=== PATIENT | female | born 2000 | race Caucasian/White ===

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

== ENCOUNTER 2021-10-07 12:07 | Emergency (ER) | payer OTHER ==
[~2021-10-07] VITALS: Ht 170.2 cm; Wt 106.4 kg
[~2021-10-07 12:07] MED LIST changes: +ZOLO50TA PO
[2021-10-07 12:09] VITALS: BP 131/67
--- OUTSIDE RECORDS SUMMARY | 2021-10-07 12:14 | CCD ---
Author Author Monica Lockwood Organization Unknown Address [address] [address] Phone Care Team Providers Care Tank Refinisher Name Role Phone Lockwood, Lisa PCP Allergies, Adverse Reactions, Alerts No Data in Section Problem List Concept Problem Description Status Start Date Created Date Resolv ed Date Snomed Code F31.9 Unspecified Bipolar and Related Disorder Active 08/14/2021 F12.10 Cannabis Use Disorder, Mild Active 08/14/2021 Medications No Data in Section Social History Social History Element Description Concept Effective Date Smoking Status Unknown if ever smoked [id number] Immunizations No Data in Section Vital Signs No Data in Section Procedures Date Concept Id Description Targeted Site Concept Targeted Site Concept Type 08/14/2021 40508 Extended Individual Psychotherapy - 45 min CPT Patient has no history of implantable de vices Encounters Encounter Start Date End Date Encounter Type Description Diagnosis Di agnosis Desc Location Author First Name Author Last Name Npid Taxonomy Cod e Taxonomy Desc Phone Number Location Addr1 Location Addr2 Location [facility] Location [facility] Location [facility] [id number] 08/14/2021 08/14/2021 18742 Extended Individual Psych otherapy - 45 min F31.9 Bipolar disorder, unspecified [facility] [place] [phone] [id number] Mental Health [phone] [address] [place], [place] [address] [facility] [id number] Plan of Treatment No Data in Section Lab Results No Data in Section Instructions No Data in Section Insurance Providers Insurance Id Policy Effective Date Policy Thru Date Company N jon [id number] 2021 [employer] Managed MTanvi balderas
--- OUTSIDE RECORDS SUMMARY | 2021-10-07 12:14 | CCD ---
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 Name Role Phone James Sullivan MEDICAL CONCIERGE Unavailable James Sullivan MEDICAL CONCIERGE Unavailable James Sullivan MEDICAL CONCIERGE Unavailable BILAL, ARTUROMAD Unavailable Unavailable BILAL, AHMAD MD Unavailable Unavailable BILAL, AHMAD MD Unavailable Unavailable BILAL, AHMAD MD Unavailable Unavailable BILAL, AHMAD MD Unavailable Unavailable BILAL, AHMAD MD Unavailable Unavailable BILAL, AHMAD MD Unavailable Unavailable BILAL, AHMAD MD Unavailable Unavailable BILAL, AHMAD MD Unavailable Unavailable BILAL, AHMAD MD Unavailable Unavailable Salinas, R Murphy MEDICAL CONCIERGE Unavailable Unavailable Salinas, R Murphy MEDICAL CONCIERGE Unavailable Unavailable Salinas, R Murphy MEDICAL CONCIERGE Unavailable Unavailable DARIN, GAYLA MEDICAL CONCIERGE Unavailable Unavailable DARIN, GAYLA MEDICAL CONCIERGE Unavailable Unavailable DARIN, GAYLA MEDICAL CONCIERGE Unavailable Unavailable DARIN, GAYLA MEDICAL CONCIERGE Unavailable Unavailable DARIN, GAYLA MEDICAL CONCIERGE Unavailable Unavailable DARIN, GAYLA MEDICAL CONCIERGE Unavailable Unavailable DARIN, GAYLA MEDICAL CONCIERGE Unavailable Unavailable Violet Lu Unavailable LisaMeme watts Unavailable Angeline Michelle Unavailable Unavailable Re-disclosure Warning The records that you are about to access may contain information from federally-assisted alcohol or drug abuse programs. If such information is present, then the following federally mandated warning applies: This information has been disclosed to you from records protected by federal confidentiality rules (42 CFR part 2). The federal rules prohibit you from making any further disclosure of this information unless further disclosure is expressly permitted by the written consent of the person to whom it pertains or as otherwise permitted by 42 CFR part 2. A general authorization for the release of medical or other information is NOT sufficient for this purpose. The Federal rules restrict any use of the information to criminally investigate or prosecute any alcohol or drug abuse patient.The records that you are about to access may contain highly sensitive health information, the redisclosure of which is protected by Article 27-F of the [place] State Public Health law. If you continue you may have access to information: Regarding HIV / AIDS; Provided by facilities licensed or operated by the [facility] Office of Mental Health; or Provided by the [facility] Office for People With Developmental Disabilities. If such information is present, then the following [facility] mandated warning applies: This information has been disclosed to you from confidential records which are protected by state law. State law prohibits you from making any further disclosure of this information without the specific written consent of the person to whom it pertains, or as otherwise permitted by law. Any unauthorized further disclosure in violation of state law may result in a fine or snf sentence or both. A general authorization for the release of medical or other information is NOT sufficient authorization for further disc losure. Allergies and Adverse Reactions Type Description Substance Reaction Status Data Source(s ) Drug allergy Penicillins Penicillin hives and face swells [facility] Health Encounters Encounter Providers Location Date Indications Data Source(s ) Extended Individual Psychotherapy - 45 min Attender: Angeline Miguel Angel [facility] 08/14/2021 01:00:00 AM EDT - 08/14/2021 01:00:00 AM EDT [facility] ([facility]) Attender: Angeline Miguel Angel 08/14/2021 12:00:00 AM EDT [facility] ([facility]) Health Monitoring - 30 Min Attender: Meme Priest [facility] 06/25/2021 02:00:00 AM EDT - 06/25/2021 02:00:00 AM EDT [facility] ([facility]) Psychiatric Diagnostic Evaluation (Non-Medical) Attender: Shantel valencia [facility] 06/25/2021 01:00:00 AM EDT - 06/25/2021 01:00:00 AM EDT [facility] ([facility]) Attender: Meme Priest 06/25/2021 12:00:00 AM EDT [facility] ([facility]) Attender: Angeline Miguel Angel 06/25/2021 12:00:00 AM EDT [facility] ([facility]) Brief Individual Psychotherapy - 30 min Attender: Violet hernandez [facility] 06/08/2021 11:00:00 AM EDT - 06/08/2021 11:00:00 AM EDT [facility] ([facility]) Attender: Violet Lu 06/08/2021 12:00:00 AM EDT [facility] ([facility]) ([facility]) [facility] Nurse Visit [address] [place] [address] 04/16/2021 12:00:00 AM EDT eC1 ([facility]) Extended Individual Psychotherapy - 45 min Attender: Angeline Michelle [facility] 04/02/2021 03:00:00 AM EDT - 04/02/2021 03:00:00 AM EDT [facility] ([facility]) Attender: Angeline Michelle 04/02/2021 12:00:00 AM EDT [facility] ([facility]) Attender: Angeline Michelle 03/12/2021 12:00:00 AM EDT [facility] ([facility]) Extended Individual Psychotherapy - 45 min Attender: Angeline Miguel Angel [facility] 03/11/2021 02:00:00 AM EDT - 03/11/2021 02:00:00 AM EDT [facility] ([facility]) Extended Individual Psychotherapy - 45 min [facility] 02/24/[facility]21 02:00:00 AM EDT - 02/24/2021 02:00:00 AM EDT [facility] ([facility]) Attender: Angeline Michelle 02/24/2021 12:00:00 AM EDT [facility] ([facility]) Telemed Diagnostic Eval Attender: Murphy Guerrero [facility] 02/10/2021 02:00:00 AM EDT - 02/10/2021 02:00:00 AM EDT [facility] ([facility]) Attender: Murphy Salinas NP 02/10/2021 12:00:00 AM EDT [facility] ([facility]) Outpatient [address] [facility] [address] 01/29/2021 12:00:00 AM EDT eCW1 ([facility]) Inpatient Attender: OSMANI TOUSSAINT MDAdmitter: OSMANI TOUSSAINT MD 01/09/2021 03:15:00 AM EST - 01/12/2021 06:07:00 PM EDT Suicidal Ideation w/plan to [place] [facility] Suicidal Ideation w/plan to jump in rive [place] Patient discharged. Outpatient Attender: GAYLA WEBSTER NPAdm itter: OSMANI TOUSSAINT MDConsultant: OSMANI TOUSSAINT MD 01/09/2021 03:15:00 AM EST Suicidal Ideation w/p sadie to [place] [facility] Suicidal Ideation w/plan to jump in rive r Outpatient Attender: James Sullivan NPAd mitter: OSMANI TOUSSAINT MDConsultant: OSMANI TOUSSAINT MD 01/09/2021 03:15:00 AM EST Suicidal Ideation w/p sadie to [place] [facility] Suicidal Ideation w/plan to jump in rive r Outpatient Attender: GAYLA WEBSTER NPAdm itter: OSMANI TOUSSAINT MDConsultant: OSMANI TOUSSAINT MD 01/09/2021 03:15:00 AM EST Suicidal Ideation w/p sadie to [place] [facility] Suicidal Ideation w/plan to jump in rive r Outpatient Attender: OSMANI TOUSSAINT MDAdmi tter: OSMANI TOUSSAINT MDConsultant: OSMANI TOUSSAINT MD 01/09/2021 03:15:00 AM EST Suicidal Ideation w/p sadie to [place] [facility] Suicidal Ideation w/plan to jump in rive r Outpatient Attender: OSMANI TOUSSAINT MDAdmi tter: OSMANI TOUSSAINT MDConsultant: OSMANI TOUSSAINT MD 01/09/2021 03:15:00 AM EST Suicidal Ideation w/p sadie to [place] [facility] Suicidal Ideation w/plan to jump in rive r Outpatient 01/09/2021 01:35:00 AM EST [facility] SI ( ESTOB) [facility]Center Est OB [address] [place] [address] 12/26/2020 12:00:00 AM EST eCW1 ([facility]) (WC ESTOB) [facility] [address] [place] [address] 10/21/2020 12:00:00 AM EST eCW1 ([facility]) (WC ESTOB) [facility] [address] [place] [address] 10/07/2020 12:00:00 AM EST eCW1 ([facility]) (WC ESTOB) [facility] [address] [place] [address] 09/09/2020 12:00:00 AM EST eCW1 ([facility]) Unknown [address] [facility] [address] 09/09/2020 12:00:00 AM EST eCW1 ([facility]) Outpatient [address] [place] [address] 08/26/2020 12:00:00 AM EDT eCW1 ([facility]) ( ESTOB) [facility] Est OB [address] [place] [address] 08/19/2020 12:00:00 AM EDT eCW1 ([facility]) Functional Status Immunizations Vaccine Date Status Description Data Source(s) 04/16/2021 02:43:00 PM EDT completed e CW1 ([facility]) 01/29/2021 10:58:00 AM EDT completed e CW1 ([facility]) 01/29/2021 10:58:00 AM EDT completed e CW1 ([facility]) New in 2011. IIV4 08/19/2020 04:38:00 PM EDT completed eCW1 ([facility]) New in 2011. IIV4 08/19/2020 04:38:00 PM EDT completed eCW1 ([facility]) New in 2011. IIV4 08/19/2020 04:38:00 PM EDT completed eCW1 ([facility]) New in 2011. IIV4 08/19/2020 04:38:00 PM EDT completed eCW1 ([facility]) New in 2011. IIV4 08/19/2020 04:38:00 PM EDT completed eCW1 ([facility]) New in 2011. IIV4 08/19/2020 04:38:00 PM EDT completed eCW1 ([facility]) New in 2011. IIV4 08/19/2020 04:38:00 PM EDT completed eCW1 ([facility]) New in 2011. IIV4 08/19/2020 04:38:00 PM EDT completed eCW1 ([facility]) New in 2011. IIV4 08/19/2020 04:38:00 PM EDT completed eCW1 ([facility]) Medications Medication Brand Name Start Date Product Form Dose Route Admi nistrative Instructions Pharmacy Instructions Status Indications Reaction Description Data Source(s) 100 mg 05/02/2021 12:00:00 AM EDT capsule 21 TAKE ONE CAPSULE BY MOUTH THREE TIMES A DAY TAKE ONE CAPSULE BY MOUTH THREE TIMES A DAY SOLD: 05/11/2021 [facility] 2 mg 05/02/2021 12:00:00 AM EDT tablet 7 TAKE ONE TABLET BY MOUTH EVERY DAY TAKE ONE TABLET BY MOUTH EVERY DAY SOLD: 05/11/2021 [facility] 100 mg 05/02/2021 12:00:00 AM EDT tablet 7 TAKE ONE TABLET BY MOUTH EVERY DAY TAKE ONE TABLET BY MOUTH EVERY DAY SOLD: 05/11/2021 [facility] 2 mg 02/12/2021 12:00:00 AM EDT tablet 30 TAKE ONE TABLET BY MOUTH EVERY DAY TAKE ONE TABLET BY MOUTH EVERY DAY SOLD: 03/24/2021 [facility] 2 mg 02/12/2021 12:00:00 AM EDT tablet 30 TAKE ONE TABLET BY MOUTH EVERY DAY TAKE ONE TABLET BY MOUTH EVERY DAY SOLD: 02/12/2021 [facility] 100 mg 02/11/2021 12:00:00 AM EDT tablet 30 TAKE ONE TABLET BY MOUTH EVERY DAY TAKE ONE TABLET BY MOUTH EVERY DAY SOLD: 03/24/2021 [facility] 100 mg 02/11/2021 12:00:00 AM EDT capsule 90 TAKE ONE CAPSULE BY MOUTH THREE TIMES A DAY TAKE ONE CAPSULE BY MOUTH THREE TIMES A DAY SOLD: 02/12/2021 [facility] 100 mg 02/11/2021 12:00:00 AM EDT capsule 90 TAKE ONE CAPSULE BY MOUTH THREE TIMES A DAY TAKE ONE CAPSULE BY MOUTH THREE TIMES A DAY SOLD: 03/24/2021 [facility] 100 mg 02/11/2021 12:00:00 AM EDT tablet 30 TAKE ONE TABLET BY MOUTH EVERY DAY TAKE ONE TABLET BY MOUTH EVERY DAY SOLD: 02/12/2021 [facility] Sertraline 100 MG Oral Tablet sertraline 02/10/2021 12:00:00 AM EDT 100 mg by mouth completed <td ID="Medica tionRxNorm_1">940083</td><td ID="MedicationMedication_1">sertraline</td><td ID="MedicationRoute_1">by mouth</td><td ID="MedicationRouteConcept_1">Y52015</td><td ID="MedicationStartDate_1">02/10/2021</td><td ID="MedicationStopDate_1">04/11/2021</td><td ID="MedicationDosageFrequency_1">once a day</td><td ID="MedicationDuration_1">30</td><td ID="MedicationFormulaStrength_1">100 mg</td><td ID="MedicationDosageForm_1">tablet</td><td ID="MedicationDosageFormCode_1"></td><td ID="MedicationDosageDescription_1"></td><td ID="MedicationMedicationId_1">[id number]</td><td ID="MedicationAccount_1">[id number]</td><td ID="MedicationNpid_1">[id number]</td><td ID="MedicationAuthorFirstName_1">Murphy</td><td ID="MedicationAuthorLastName_1">Salinas</td><td ID="MedicationTaxonomyCode_1">[id number]</td><td ID="MedicationTaxonomyDesc_1">Nurse Practitioner</td><td ID="MedicationPhoneNumber_1">[phone]</td> [facility] aripiprazole 2 MG Oral Tablet aripiprazole 02/10/2021 12:00:00 AM EDT 2 mg by mouth completed <td ID="Medica tionRxNorm_3">640167</td><td ID="MedicationMedication_3">aripiprazole</td><td ID="MedicationRoute_3">by mouth</td><td ID="MedicationRouteConcept_3">G63645</td><td ID="MedicationStartDate_3">02/10/2021</td><td ID="MedicationStopDate_3">04/11/2021</td><td ID="MedicationDosageFrequency_3">once a day</td><td ID="MedicationDuration_3">30</td><td ID="MedicationFormulaStrength_3">2 mg</td><td ID="MedicationDosageForm_3">tablet</td><td ID="MedicationDosageFormCode_3"></td><td ID="MedicationDosageDescription_3"></td><td ID="MedicationMedicationId_3">[id number]</td><td ID="MedicationAccount_3">[id number]</td><td ID="MedicationNpid_3">[id number]</td><td ID="MedicationAuthorFirstName_3">Murphy</td><td ID="MedicationAuthorLastName_3">Salinas</td><td ID="MedicationTaxonomyCode_3">[id number]</td><td ID="MedicationTaxonomyDesc_3">Nurse Practitioner</td><td ID="MedicationPhoneNumber_3">[phone]</td> [facility] ([facility]) gabapentin 100 MG Oral Capsule gabapentin 02/10/2021 12:00:00 AM EDT 100 mg by mouth completed <td ID="Medica tionRxNorm_2">369875</td><td ID="MedicationMedication_2">gabapentin</td><td ID="MedicationRoute_2">by mouth</td><td ID="MedicationRouteConcept_2">A78100</td><td ID="MedicationStartDate_2">02/10/2021</td><td ID="MedicationStopDate_2">04/11/2021</td><td ID="MedicationDosageFrequency_2">three times a day</td><td ID="MedicationDuration_2">30</td><td ID="MedicationFormulaStrength_2">100 mg</td><td ID="MedicationDosageForm_2">capsule</td><td ID="MedicationDosageFormCode_2"></td><td ID="MedicationDosageDescription_2"> </td><td ID="MedicationMedicationId_2">[id number]</td><td ID="MedicationAccount_2">[id number]</td><td ID="MedicationNpid_2">[id number]</td><td ID="MedicationAuthorFirstName_2">Murphy</td><td ID="MedicationAuthorLastName_2">Salinas</td><td ID="MedicationTaxonomyCode_2">[id number]</td><td ID="MedicationTaxonomyDesc_2">Nurse Practitioner</td><td ID="MedicationPhoneNumber_2">[phone]</td> [facility] ([facility]) 50 mg 01/12/2021 12:00:00 AM EDT tablet 30 TAKE ONE TABLET BY MOUTH AT BEDTIME TAKE ONE TABLET BY MOUTH AT BEDTIME SOLD: 01/12/2021 [facility] 100 mg 01/12/2021 12:00:00 AM EDT tablet 30 TAKE ONE TABLET BY MOUTH DAILY TAKE ONE TABLET BY MOUTH DAILY SOLD: 01/12/2021 [facility] 2 mg 01/12/2021 12:00:00 AM EDT tablet 30 TAKE ONE TABLET BY MOUTH DAILY TAKE ONE TABLET BY MOUTH DAILY SOLD: 01/12/2021 [facility] 100 mg 01/12/2021 12:00:00 AM EDT capsule 90 TAKE ONE CAPSULE BY MOUTH THREE TIMES A DAY TAKE ONE CAPSULE BY MOUTH THREE TIMES A DAY SOLD: 01/12/2021 [facility] Sprintec 28 0.25-35 MG-MCG Sprintec 28 0.25-35 MG-MCG 2020 12:00:00 AM EST 1.0 {tablet} active Sprintec 28 0.25-35 MG-MCG eCW1 ([facility]) Sertraline 50 MG Oral Tablet [Zoloft] Zoloft 50 MG Zoloft 50 MG 12/26/2020 12:00:00 AM EST 1.0 {tablet} active Zo loft 50 MG eCW1 ([facility]) Sertraline 50 MG Oral Tablet [Zoloft] Zoloft 50 MG Zoloft 50 MG 12/26/2020 12:00:00 AM EST 1.0 {tablet} active Zo loft 50 MG eCW1 ([facility]) Sertraline 50 MG Oral Tablet [Zoloft] Zoloft 50 MG Zoloft 50 MG 12/26/2020 12:00:00 AM EST 1.0 {tablet} active Zo loft 50 MG eCW1 ([facility]) 0.25-35 mg-mcg 12/26/2020 12:00:00 AM EST tablet 84 TAKE ONE TABLET BY MOUTH EVERY DAY TAKE ONE TABLET BY MOUTH EVERY DAY SOLD: 12/26/2020 [facility] Sprintec 28 0.25-35 MG-MCG Sprintec 28 0.25-35 MG-MCG 2020 12:00:00 AM EST 1.0 {tablet} active Sprintec 28 0.25-35 MG-MCG eCW1 ([facility]) Sprintec 28 0.25-35 MG-MCG Sprintec 28 0.25-35 MG-MCG 2020 12:00:00 AM EST 1.0 {tablet} active Sprintec 28 0.25-35 MG-MCG eCW1 ([facility]) 50 mg 12/26/2020 12:00:00 AM EST tablet 30 TAKE ONE TABLET BY MOUTH EVERY DAY TAKE ONE TABLET BY MOUTH EVERY DAY SOLD: 12/26/2020 [facility] 28 Day Pack 0.15-0.03 mg DESOGESTREL-ETHINYL ESTRAD IOL 11/27/2020 12:00:00 AM EST tablet 84 TAKE ONE TABLET BY MOUTH ONCE DAILY TAKE ONE TABLET BY MOUTH ONCE DAILY SOLD: 11/27/2020 [facility] Omeprazole 20 MG Delayed Release Oral Capsule Omeprazole 20 MG 09/09/2020 12:00:00 AM EST suspended Omepr azole 20 MG eCW1 ([facility]) Omeprazole 20 MG Delayed Release Oral Capsule Omeprazole 20 MG 09/09/2020 12:00:00 AM EST active Omeprazo le 20 MG eCW1 ([facility]) 20 mg 09/09/2020 12:00:00 AM EST capsule,delayed release (DR/EC) 30 TAKE ONE CAPSULE BY MOUTH EVERY DAY - 30 MINUTES BEFORE MORNING MEAL TAKE ONE CAPSULE BY MOUTH EVERY DAY - 30 MINUTES BEFORE MORNING MEAL SOLD: 09/10/2020 [facility] Omeprazole 20 MG Delayed Release Oral Capsule Omeprazole 20 MG 09/09/2020 12:00:00 AM EST active Omeprazo le 20 MG eCW1 ([facility]) Omeprazole 20 MG Delayed Release Oral Capsule Omeprazole 20 MG 09/09/2020 12:00:00 AM EST active Omeprazo le 20 MG eCW1 ([facility]) Omeprazole 20 MG Delayed Release Oral Capsule Omeprazole 20 MG 09/09/2020 12:00:00 AM EST suspended Omepr azole 20 MG eCW1 ([facility]) Omeprazole 20 MG Delayed Release Oral Capsule Omeprazole 20 MG 09/09/2020 12:00:00 AM EST suspended Omepr azole 20 MG eCW1 ([facility]) Omeprazole 20 MG Delayed Release Oral Capsule Omeprazole 20 MG 09/09/2020 12:00:00 AM EST active Omeprazo le 20 MG eCW1 ([facility]) Omeprazole 20 MG Delayed Release Oral Capsule Omeprazole 20 MG 09/09/2020 12:00:00 AM EST active Omeprazo le 20 MG eCW1 ([facility]) NITROFURANTOIN, MACROCRYSTALS 25 MG / Ni trofurantoin, Monohydrate 75 MG Oral Capsule Nitrofurantoin Monohyd Macro 100 MG Nitrofurantoin Monohyd Macro 100 MG 08/26/2020 12:00:00 AM EDT suspended Nitrofurantoin Monohyd Macro 100 MG eCW1 ([facility]) 100 mg 08/26/2020 12:00:00 AM EDT capsule 14 TAKE ONE CAPSULE BY MOUTH TWICE A DAY WITH FOOD FOR 7 DAYS TAKE ONE CAPSULE BY MOUTH TWICE A DAY WI TH FOOD FOR 7 DAYS SOLD: 08/26/2020 [facility] NITROFURANTOIN, MACROCRYSTALS 25 MG / Ni trofurantoin, Monohydrate 75 MG Oral Capsule Nitrofurantoin Monohyd Macro 100 MG Nitrofurantoin Monohyd Macro 100 MG 08/26/2020 12:00:00 AM EDT suspended Nitrofurantoin Monohyd Macro 100 MG eCW1 ([facility]) NITROFURANTOIN, MACROCRYSTALS 25 MG / Ni trofurantoin, Monohydrate 75 MG Oral Capsule Nitrofurantoin Monohyd Macro 100 MG Nitrofurantoin Monohyd Macro 100 MG 08/26/2020 12:00:00 AM EDT active Nitrofurantoin Monohyd Macro 100 MG eCW1 ([facility]) NITROFURANTOIN, MACROCRYSTALS 25 MG / Ni trofurantoin, Monohydrate 75 MG Oral Capsule Nitrofurantoin Monohyd Macro 100 MG Nitrofurantoin Monohyd Macro 100 MG 08/26/2020 12:00:00 AM EDT suspended Nitrofurantoin Monohyd Macro 100 MG eCW1 ([facility]) Insurance Providers Payer name Policy type / Coverage type Policy ID Covered democrat ID Covered democrat's relationship to arora Policy Arora Plan Information [facility] P [id number] S [id number] Medicaid S [id number] S [id number] Medicaid Dental P [id number] S [id number] Managed Care - Community Plan [facility] P [id number] S [id number] Managed Care - Community Plan [facility] P [id number] S [id number] Medicaid O [id number] S [id number] Managed Care - Community Plan [facility] P [id number] S [id number] Managed Care - Community Plan [facility] P [id number] S [id number] Medicaid Dental P [id number] S [id number] Medicaid S [id number] S [id number] Managed Care - Community Plan [facility] P [id number] S [id number] Managed Care - Community Plan [facility] P [id number] S [id number] Managed Care - [facility] Community Plan P [id number] S [id number] Medicaid S [id number] S [id number] Managed Care - Community Plan [facility] P [id number] S [id number] MEDICAID M [id number] Self [id number] UN COMMUNITY PLAN MCDHMO [id number] SP [id number] UN COMMUNITY PLAN MCDHMO [id number] SP [id number] SELF PAY [facility] [id number] SP [id number] [place] [id number] SP [id number] Sliding Fee Scale O UNAVAILABLE O UNAVAILABLE [place]EDNY [id number] SP [id number] UN COMMUNITY PLAN MCDHMO [id number] SP [id number] [facility] COMMUNITY PLAN MCDHMO [id number] SP [id number] [facility](MCAID) O [id number] S [id number] SELF PAY ONLY SP MEDICAID [id number] SP [id number] Managed Care - Community Plan [facility] S [id number] S [id number] Self Pay P [id number] S [id number] D Managed Care [facility] S [id number] S [id number] zzMedicaid FFS O [id number] Self Pay P UNAVAILABLE S UNAVAILA BLE Managed Care BCBS O [id number] S [id number] Sliding Fee Scale O [id number] S [id number] UN COMMUNITY PLAN MCDO [id number] SP [id number] Problems, Conditions, and Diagnoses Code Display Name Description Problem Type Effective Dates Data Source(s) Z13.9 Encounter for screening, unspecified Z13 .9 - Encounter for screening, unspecified Diagnosis 01/09/2021 03:15:00 AM [facility] F32.2 Major depressive disorder, s rei episode, severe without psychotic features F32.2 - Major depressive disorder, singl e episode, severe without psychotic features Diagnosis 01/09/2021 03:15:00 AM [facility] SI SI Diagnosis 01/09/2021 01:35:00 AM [facility] F12.10 Cannabis abuse, uncomplicated Cannabis Use Disorder, M ild Condition 08/14/2021 12:00:00 AM EDT [facility] ([facility]) F31.9 Bipolar disorder, unspecified Unspecified Bipola r and Related Disorder Condition 08/14/2021 12:00:00 AM EDT [facility] ([facility]) Z72.0 Tobacco use Tobacco Use Disorder, Mild Condition 0 04/02/2021 12:00:00 AM EDT [facility] ([facility]) F43.23 Adjustment disorder with mixed anxiety a nd depressed mood Adjustment Disorder, With mixed anxiety and depressed mood Condition 2020 12:00:00 AM EDT [facility] ([facility]) F43.9 Reaction to severe stress, unspecified U nspecified Trauma- and Stressor- Related Disorder Condition 04/02/2021 12:00:00 AM EDT [facility] ( [facility]) F33.2 Major depressive disorder, recurrent sev ere without psychotic features Major Depressive Disorder, Recurrent episode, Severe Condition 0 04/02/2021 12:00:00 AM EDT [facility] ([facility]) F31.9 [id number] Bipolar 1 disorder, depressed Problem 2020 12:00:00 AM EDT eCW1 ([facility]) Surgeries/Procedures Procedure Description Date Indications Data Source(s) Extended Individual Psychotherapy - 45 min 08/14/2021 12:00:00 AM EDT - 08/14/2021 12:00:00 AM EDT [facility] ([facility]) Extended Individual Psychotherapy - 45 min 12:00:00 AM EDT [facility] ([facility]) PREVENT MED GRADUATE RESEARCH ASSISTANT&/RISK FACTOR REDJ SPX 30 MIN 06/25/2021 12:00:00 AM EDT - 06/25/2021 12:00:00 AM EDT [facility] ([facility]) PREVENT MED GRADUATE RESEARCH ASSISTANT&/RISK FACTOR REDJ SPX 30 MIN 06/25 12:00:00 AM EDT [facility] ([facility]) Psychiatric Diagnostic Evaluation (Non-Medical) 06/25/2021 12:00:00 AM EDT - 06/25/2021 12:00:00 AM EDT [facility] ([facility]) Psychiatric Diagnostic Evaluation (Non-Medical) 2020 12:00:00 AM EDT [facility] ([facility]) Brief Individual Psychotherapy - 30 min 06/08/2021 12:00:00 AM EDT - 06/08/2021 12:00:00 AM EDT [facility] ([facility]) Brief Individual Psychotherapy - 30 min 06/08/2021 12: 00:00 AM EDT [facility] ([facility]) URINE TEST 04/16/2021 12:00:00 AM EDT eCW1 ([facility]) Injection, medroxyprogesterone acetate for contraceptive use , 150 mg 04/16/2021 12:00:00 AM EDT eCW1 ([facility]) Extended Individual Psychotherapy - 45 min 04/02/2021 12:00:00 AM EDT - 04/02/2021 12:00:00 AM EDT [facility] ([facility]) Extended Individual Psychotherapy - 45 min 12:00:00 AM EDT [facility] ([facility]) Extended Individual Psychotherapy - 45 min 03/12/2021 12:00:00 AM EDT - 03/12/2021 12:00:00 AM EDT [facility] ([facility]) Extended Individual Psychotherapy - 45 min 12:00:00 AM EDT [facility] ([facility]) Extended Individual Psychotherapy - 45 min 02/24/2021 12:00:00 AM EDT - 02/24/2021 12:00:00 AM EDT [facility] ([facility]) Extended Individual Psychotherapy - 45 min 12:00:00 AM EDT [facility] ([facility]) Telemed Diagnostic Eval 02/10/2021 12:00 :00 AM EDT - 02/10/2021 12:00:00 AM EDT [facility] ([facility]) Telemed Diagnostic Eval 02/10/2021 12:00:00 AM EDT [facility] ([facility]) Injection, medroxyprogesterone acetate for contraceptive use , 150 mg 01/29/2021 12:00:00 AM EDT eCW1 ([facility]) URINE TEST 01/29/2021 12:00:00 AM EDT eCW1 ([facility]) INFLUENZA VIRUS VACC SPLIT PRSRV FREE 3 YRS/> IM 08/19 12:00:00 AM EDT eCW1 ([facility]) Results ID Date Data Source [id number] 01/11/2021 04:18:00 [place] [address] HEALTH INFORMATION MANAGEMENT Consultation : [id number] Signed Patient: Monica Koehler Acct:[id number] [facility] t: [id number] : 2000 Loc: [facility] Room/Bed: 819-A Age/Sex: 20 / F ADM Date: 01/09/21 cc: James Andres MD, Baljeet NP PCM Consult Date of Consult: 01/11/21 Reason for Consult: History and physical. Hospitalist attending in charge: Dr. Andres. History of Present Illness: Patient is a 20-year-old female with no significant past medical historywas been admitted [facility] due to worsening depression. Hospitalist service wasconsulted history and physical. Allergies Penicillins Allergy (Severe, Verified 01/09/21 16:48) hives and face swells Home Medications Medication Instructions Recorded norgestimate-ethinyl estradiol 1 tab PO DAILY 01/09/21 [Estarylla] sertraline 50 mg PO DAILY 01/09/21 Current Visit Medications: Generic Name Dose Route Start Last Admin Trade Name Freq PRN Reason Stop Dose Admin Acetaminophen 650 mg 01/09/21 12:23 01/09/21 13:10 Acetaminophen 325 Mg Tablet PO 650 mg Q4HPRN PRN Administration Pain or Headache Aripiprazole 2 mg 01/09/21 17:00 01/11/21 08:09 Aripiprazole 2 Mg Tablet PO 2 mg DAILY ALEJA Administration Gabapentin 100 mg 01/09/21 20:00 01/11/21 13:01 Gabapentin 100 Mg Capsule PO 100 mg TID ALEJA Administration Sertraline HCl 100 mg 01/10/21 08:00 01/11/21 08:09 Sertraline 50 Mg Tablet PO 100 mg DAILY ALEJA Administration Trazodone HCl 50 mg 01/09/21 20:00 01/10/21 19:34 Trazodone 50 Mg Tablet PO 50 mg HS ALEJA Administration Discontinued Medications Generic Name Dose Route Start Last Admin Trade Name Freq PRN Reason Stop Dose Admin Sertraline HCl 50 mg 01/09/21 17:00 01/09/21 17:21 Sertraline 50 Mg Tablet PO 50 mg DAILY ALEJA Administration Social History Other: She is , has 2 children. 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 Lives with: Reports Family PMH/PSH Medical History (Updated 01/11/21 @ 16:20 by James Sullivan NP) No pertinent past medical history Surgical History (Updated 01/11/21 @ 16:20 by James Sullivan NP) No pertinent past surgical history (Surgical) Family History (Updated 01/11/21 @ 16:20 by James Sullivan NP) Other Malignant neoplasm of breast Malignant neoplasm of lung Subjective-consult General: Denies Chills, Fatigue and Lethargic/Drowsy HEENT: Denies Headache and Lightheaded/Dizziness Pulmonary: Denies Cough, Shortness of Breath, Sputum and Wheezing Cardiovascular: Denies Chest Pain, Dyspnea on Exertion, Leg Swelling and Palpitations Gastrointestinal: Denies Abdominal Pain, Constipation, Diarrhea, Melena, Nausea, Stool Changes and Vomiting Genitourinary: Denies Dysuria, Frequency, Hematuria and Incontinence Musculoskeletal: Denies Back Pain and Joint stiffness/swelling Neurological: Denies Change in Mental Status, Change in Speech, Confusion, Headaches, Numbness and Weakness Skin Problem: Denies Rash Objective Vitals and I O: I O (Last 24 Hours) 01/09/21 01/10/21 01/12/21 23:59 23:59 00:59 Other: Voiding Method Toilet Toilet # Bowel Movements 1 Weight 92 kg General: Alert, Cooperative and Oriented x3 HEENT: Atraumatic, EOMI, Normocephalic and MOE Neck: Supple; negative Stiffness, JVD, Thyromegaly and Adenopathy Lungs: Clear to auscultation and Normal Air Movement; negative Crackles, Rhonchi and Wheezing Cardiovascular: Capillary refill<2 second, Normal Rate, Normal S1, Normal S2 and Regular rhythm; negative Lower extremity edema and Murmurs Abdomen: Normal Active Bowel Sound and Soft; negative Distended, Tenderness, Guarding and Rebound CVA tenderness Extremities: n egative Edema and Tenderness Extremities: negative Edema and Tenderness 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: 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 and agreed with; negative Lesions and Rashes Neurological: Awake/Oriented, Cranial nerves 3-12 NL, Sensation intact and Strength at 5/5 X4 ext; negative Drowsy and Lethargic Psych/Mental Status: Alert, Oriented x 3 and Proper Affect; negative Agitation Active Medications: Active Medications Acetaminophen (Acetaminophen 325 Mg Tablet) 650 mg PO Q4HPRN PRN PRN Reason: Pain or Headache Last Admin: 01/09/21 13:10 Dose: 650 mg Documented by: Aripiprazole (Aripiprazole 2 Mg Tablet) 2 mg PO DAILY [facility] Last Admin: 01/11/21 08:09 Dose: 2 mg Documented by: Gabapentin (Gabapentin 100 Mg Capsule) 100 mg PO TID [facility] Last Admin: 01/11/21 13:01 Dose: 100 mg Documented by: Sertraline HCl (Sertraline 50 Mg Tablet) 100 mg PO DAILY [facility] Last Admin: 01/11/21 08:09 Dose: 100 mg Documented by: Trazodone HCl (Trazodone 50 Mg Tablet) 50 mg PO [facility] Last Admin: 01/10/21 19:34 Dose: 50 mg Documented by: Consult Assessment/Plan (1) Major depressive disorder, single episode, severe with anxious distress: Code(s): F32.2 - Major depressive disorder, single episode, severe without psychotic features Status: Acute Present on Admission: Yes Plan: Manage per psychiatry (2) Encounter for medical screening examination: Code(s): Z13.9 - Encounter for screening, unspecified Status: Acute Present on Admission: Yes Plan: Patient assessed and examined at bedside. No medical issues that needs to be addressed at this time. Please consult hospitalist service for any concerns that arise during her stay at [facility]. MIPS MIPS REVIEWED Did you review MIPS this visit?: Yes Tobacco Use:Preventative Care/Screening Performance Met:: 4004F: Pt screened for tobacco use, identified user, recieved info Hospitalist Charges Worksheet Subject to change for billing criteria Did you complete your Hospitalist charges for this visit?: Yes Inpt Consult [id number] Cons Level 2: Yes Signed By:James Sullivan <<Signature on File>> Signed Date/Time: 01/11/21 1621 Co-Signer: James Andres MD Co-Signed Date/Time: 01/11/21 3485 Initializing User: James Sullivan NP [id number] 161 Name Value Range Interpretation Code Description Data Alize rce(s) Supporting Document(s) ID Date Data Source [id number] 01/09/2021 12:37:[address] [facility] [address] [place] [address] HEALTH INFORMATION MANAGEMENT [facility] Psychosocial Summary : [id number] Signed Patient: Monica Koehler Acct:[id number] [facility] t: [id number] : 2000 Loc: [facility] Room/Bed: 819-A Age/Sex: 20 / F ADM Date: 01/09/21 cc: General/History - Presenting Problem Presenting Problem: Presenting Problem: Monica is a 20-year-old female admitted to [facility] for suicidal ideation. Client reports getting into an argument with her significant other and threatening to jump into the [place]. Client denies suicidal ideation stating that [place] down as she was dealing with multiple stressors, depression, and an argument with her . Client also believes her child is sick. Client denies audio and visual hallucinations, homicidal ideations, but she admits depression and feelings of hopelessness. Clientfeels overwhelmed. Client reports not having a desire to harm herself as she has children that thedepend on her. Background: Monica is a 20-year-old female who does not have a history of psychiatric inpatient. - Directives Does the Patient have a Health Care Proxy?: No Is the Health Care Proxy on the Chart: No Bill of Rights Given?: Yes - Social/Educational History What is the Highest Grade You Completed in School?: High School Graduate What is You Current/Last Place of Employment?: [employer] What is Your Main Source of Income?: Un employment Do You Have Any Current Legal Issues?: No - Outside Activity Are You Involved in Any Community Service?: No Do You Consider Your self a Social Person?: Yes Any Interests or Hobbies you do for fun?: Video games, music, walks. Are you part of any anglican/spirtual community?: No - Current Living/Relationship History Current Living Arrangement: Apartment Who Do You Live With?: and 2 children OK to Return Home: Yes Weapons in household: No Currently in a Relationship?: Yes Ever Been ?: Yes Any Children?: 2 - Family History Where Were You Born/Raised?: [facility] Who Was in Home?: Mother How is Your Relationship Now with Family Members?: Perfect. Was there Any Abuse/Neglect Growing Up?: No Aware of Any Mental Illness in Family?: No Psychiatric History Patient is currently on medications?: Yes Patient has a safe medication plan?: Yes Confirmation of safe medication administration completed? (: Yes Patient MMSI-SA score upon admission was:: 0 MMSI-SA Referral Indicated: No MMSI-SA Referral Completed: No On Going Medical Issues: No Sexual/Substance History - Sexual History Sexual Orientation: Bisexual Number of Sexual Partners in Last 12 Months: 1 Do You Ever Feel Your Sexual Behavior is Abnormal?: No Do You Ever Feel Badly About Your Sexual Behavior?: No Any History of STDs?: None Have You Ever Been Tested for HIV?: Yes Why or Why Not Tested for HIV: Routine. Is There Anything Else About Your Sexual Practices?: No - Substance Treatment History Ever been hospitalized for alcohol/substance abuse?: No - Current Substance Abuse Current Substance Abuse Identified (w/in last 12 months): No - Past Substance Abuse History Past Substance Abuse Identified (greater than 12 months ago): No - Discussion The quantity frequency of alcohol consumed by pt in the na: N/A The overall severity of the substance use was discussed: N/A Negative physical,emotional,and occupational consequences of: N/A Trauma Hist ory - Abuse/Neglect/Exploitation Is there a history of Abuse or Neglect or Exploitation?: No Risk Assessment - Risk to Self Level of Risk to self: No Risk Contract for Safety: Yes Do you have thoughts of hurting yourself?: No Hearing Voices Telling Him/Her to Kill Self: No Family hx of suicide attempt: No - Risk to Others Evaluation of Risk: No Risk Do you have thoughts of hurting someone other than yourself?: No History of Violence: No Ever Have Thoughts of Setting Fires: No Does Client Have Fantasies/Obsessive Thoughts About Others: No - Reducing Risk Factors Factors Reducing Risk: Complies with Tx/Meds, No Substance Abuse, Future Oriented, No Hx of Violence, Social/Peer Support Mental Status Treatment - Mental Status Mental Status: alert, oriented x 3, other Mental Status Other: 30 Was Mini-Mental Status Exam Completed?: Yes - Recommendations Recommendations for Treatment: Treatment Recommendations: client recommends that Monica explore outpatie nt therapy and outpatient marriage counseling. Discharge plan: Monica will return home after discharge Signed By:Vishnu Bustos <<Signature on File>> Signed Date/Time: 02/16/21 0711 Co-Signer: Co-Signed Date/Time: Initializing User: Vishnu PRITCHARD [id number] 1237 Name Value Range Interpretation Code Description Data Alize rce(s) Supporting Document(s) ID Date Data Source [id number] 01/09/2021 12:17:00 AM EST [facility] Name Value Range Interpretation Code Description Data Alize rce(s) Supporting Document(s) SARS coronavirus 2 RNA [Presence] in Res piratory specimen by [facility] with probe detection NEGATIVE [facility] This lab was ordered by [facility] a nd reported by [facility]. ID Date Data Source GROUP B STREP CULTURE 10/21/2020 12:00:00 AM EST eCW1 ([facility]) Name Value Range Interpretation Code Description Data Alize rce(s) Supporting Document(s) GROUP B STREP CULTURE eCW1 ([facility]) ID Date Data Source URINE CULTURE 08/28/2020 05:58:06 AM EDT eCW1 ([facility]) Name Value Range Interpretation Code Description Data Alize rce(s) Supporting Document(s) URINE CULTURE eCW1 ([facility]) Procedure Social History Code Duration Value Status Description Data Source(s ) Smoking 08/14/2021 12:00:00 AM EDT Unknown if ever smoked comp leted Unknown if ever smoked [facility] ([facility]) Smoking 06/25/2021 12:00:00 AM EDT Unknown if ever smoked comp leted Unknown if ever smoked [facility] ([facility]) Smoking 06/08/2021 12:00:00 AM EDT Unknown if ever smoked comp leted Unknown if ever smoked [facility] ([facility]) Smoking 04/02/2021 12:00:00 AM EDT Unknown if ever smoked comp leted Unknown if ever smoked [facility] ([facility]) Smoking 03/12/2021 12:00:00 AM EDT Unknown if ever smoked comp leted Unknown if ever smoked [facility] ([facility]) Smoking 02/24/2021 12:00:00 AM EDT Unknown if ever smoked comp leted Unknown if ever smoked [facility] ([facility]) Smoking 02/10/2021 12:00:00 AM EDT Unknown if ever smoked comp leted Unknown if ever smoked [facility] ([facility]) Smoking 01/28/2021 12:00:00 AM EDT Never Smoker completed Never S moker eCW1 ([facility]) Smoking 01/28/2021 12:00:00 AM EDT Never Smoker completed Never S moker eCW1 ([facility]) Smoking 12/23/2020 12:00:00 AM EST Never Smoker completed Never S moker eCW1 ([facility]) Smoking 10/27/2020 12:00:00 AM EST Never Smoker completed Never S moker eCW1 ([facility]) Smoking 10/07/2020 12:00:00 AM EST Never Smoker completed Never S moker eCW1 ([facility]) Smoking 09/19/2020 12:00:00 AM EST Never Smoker completed Never S moker eCW1 ([facility]) Smoking 09/03/2020 12:00:00 AM EST Never Smoker completed Never S moker eCW1 ([facility]) Smoking 09/03/2020 12:00:00 AM EST Never Smoker completed Never S moker eCW1 ([facility]) Smoking 08/26/2020 12:00:00 AM EDT Never Smoker completed Never S moker eCW1 ([facility]) Vital Signs ID Date Data Source UNK Name Value Range Interpretation Code Description Data Source(s) Body height 67.00 in Normal (applies to non-numeric resu lts) 67.00 in [facility] ([facility]) Body weight Measured 218.00 lbs Normal (applies to n on-numeric results) 218.00 lbs [facility] ([facility]) Body mass index (BMI) [Ratio] 34.14 kg/m2 No rmal (applies to non-numeric results) 34.14 kg/m2 [facility] ([facility]) Systolic blood pressure 111 mm[Hg] Normal (applies t o non-numeric results) 111 mm[Hg] [facility] ([facility]) Diastolic blood pressure 68 mm[Hg] Normal (applies to non-numeric results) 68 mm[Hg] [facility] ([facility]) Body temperature 98.30 degF Normal (applies to non-n umeric results) 98.30 degF [facility] Body height --lying 84 min Normal (applies to non-nume trini results) 84 min [facility] Respiratory rate 18 min Normal (applies to non-numeric results) 18 min [facility] ([facility]) Systolic blood pressure 0 mm[Hg] Normal (applies t o non-numeric results) 0 mm[Hg] [facility] ([facility]) Body height 0.00 in Normal (applies to non-numeric resu lts) 0.00 in [facility] ([facility]) Body weight Measured 0.00 lbs Normal (applies to n on-numeric results) 0.00 lbs [facility] ([facility]) Body mass index (BMI) [Ratio] 0.00 kg/m2 No rmal (applies to non-numeric results) 0.00 kg/m2 [facility] ([facility]) Diastolic blood pressure 0 mm[Hg] Normal (applies to non-numeric results) 0 mm[Hg] [facility] Body weight 208.8 [lb_av] 208.8 [lb_av] eCW1 ([facility]) Body height 67 [in_i] 67 [in_i] eCW1 ([facility]) Body mass index (BMI) [Ratio] 32.7 kg/m2 32.7 k g/m2 eCW1 ([facility]) Systolic blood pressure 120 mm[Hg] 120 mm[Hg] e CW1 ([facility]) Diastolic blood pressure 78 mm[Hg] 78 mm[Hg] eCW1 ([facility]) Body weight 211 [lb_av] 211 [lb_av] eCW1 ([facility]) Body height 67 [in_i] 67 [in_i] eCW1 ([facility]) Body mass index (BMI) [Ratio] 33.04 kg/m2 33.04 kg/m2 eCW1 ([facility]) Systolic blood pressure 150 mm[Hg] 150 mm[Hg] e CW1 ([facility]) Diastolic blood pressure 80 mm[Hg] 80 mm[Hg] eCW1 ([facility]) Body weight 227 [lb_av] 227 [lb_av] eCW1 ([facility]) Body height 67 [in_i] 67 [in_i] eCW1 ([facility]) Body mass index (BMI) [Ratio] 35.553 kg/m2 35.5 53 kg/m2 eCW1 ([facility]) Systolic blood pressure 120 mm[Hg] 120 mm[Hg] e CW1 ([facility]) Diastolic blood pressure 70 mm[Hg] 70 mm[Hg] eCW1 ([facility]) Body weight 222 [lb_av] 222 [lb_av] eCW1 ([facility]) Body height 67 [in_i] 67 [in_i] eCW1 ([facility]) Body mass index (BMI) [Ratio] 34.77 kg/m2 34.77 kg/m2 eCW1 ([facility]) Systolic blood pressure 130 mm[Hg] 130 mm[Hg] e CW1 ([facility]) Diastolic blood pressure 72 mm[Hg] 72 mm[Hg] eCW1 ([facility]) Body weight 219 [lb_av] 219 [lb_av] eCW1 ([facility]) Body height 67 [in_i] 67 [in_i] eCW1 ([facility]) Body mass index (BMI) [Ratio] 34.3 kg/m2 34.3 k g/m2 W1 ([facility]) Systolic blood pressure 130 mm[Hg] 130 mm[Hg] e CW1 ([facility]) Diastolic blood pressure 66 mm[Hg] 66 mm[Hg] eCW1 ([facility]) Body weight 217 [lb_av] 217 [lb_av] eCW1 ([facility]) Body weight 98.43 kg 98.43 kg eCW1 ([facility]) Body height 67 [in_i] 67 [in_i] eCW1 ([facility]) Body mass index (BMI) [Ratio] 33.98 kg/m2 33.98 kg/m2 eCW1 ([facility]) Systolic blood pressure 124 mm[Hg] 124 mm[Hg] e CW1 ([facility]) Diastolic blood pressure 78 mm[Hg] 78 mm[Hg] eCW1 ([facility]) Body weight 214 [lb_av] 214 [lb_av] eCW1 ([facility]) Body height 67 [in_i] 67 [in_i] eCW1 ([facility]) Body mass index (BMI) [Ratio] 33.517 kg/m2 33.5 17 kg/m2 eCW1 ([facility]) Systolic blood pressure 122 mm[Hg] 122 mm[Hg] e CW1 ([facility]) Diastolic blood pressure 68 mm[Hg] 68 mm[Hg] eCW1 ([facility]) ID Date Data Source [id number] 01/09/2021 01:35:53 AM EST [facility] Name Value Range Interpretation Code Description Data Source(s) TRANSFER FROM [facility] Patient Treatment Plan of Care Planned Activity Planned Date Details Description Data Source (s) Sertraline 50 MG Oral Tablet [Zoloft] 12/26/2020 12:00:00 AM EST eCW1 ([facility]) Sprintec 28 0.25-35 MG-MCG 12/26/2020 12:00:00 AM EST eCW1 ([facility]) Omeprazole 20 MG Delayed Release Oral Capsule 09/09/2020 12:00:00 A M EST eCW1 ([facility]) Omeprazole 20 MG Delayed Release Oral Capsule 09/09/2020 12:00:00 A M EST eCW1 ([facility]) Omeprazole 20 MG Delayed Release Oral Capsule 09/09/2020 12:00:00 A M EST eCW1 ([facility]) NITROFURANTOIN, MACROCRYSTALS 25 MG / Ni trofurantoin, Monohydrate 75 MG Oral Capsule 08/26/2020 12:00:00 AM EDT eCW1 ([facility])
--- OUTSIDE RECORDS SUMMARY | 2021-10-07 15:01 | CCD ---
Author Author [facility] Address Unknown Phone Unavailable Care Team Providers Care Bookkeeping Machine Mechanic Name Role Phone James Sullivan DOUBLE END CHUCKING MACHINE OPERATOR Unavailable James Sullivan DOUBLE END CHUCKING MACHINE OPERATOR Unavailable James Sullivan DOUBLE END CHUCKING MACHINE OPERATOR Unavailable BILAL, ARTUROMAD Unavailable Unavailable BILAL, AHMAD MD Unavailable Unavailable BILAL, AHMAD MD Unavailable Unavailable BILAL, AHMAD MD Unavailable Unavailable BILAL, AHMAD MD Unavailable Unavailable BILAL, AHMAD MD Unavailable Unavailable BILAL, AHMAD MD Unavailable Unavailable BILAL, AHMAD MD Unavailable Unavailable BILAL, AHMAD MD Unavailable Unavailable BILAL, AHMAD MD Unavailable Unavailable Salinas, R Murphy DOUBLE END CHUCKING MACHINE OPERATOR Unavailable Unavailable Salinas, R Murphy DOUBLE END CHUCKING MACHINE OPERATOR Unavailable Unavailable Salinas, R Murphy DOUBLE END CHUCKING MACHINE OPERATOR Unavailable Unavailable DARIN, GAYLA DOUBLE END CHUCKING MACHINE OPERATOR Unavailable Unavailable DARIN, GAYLA DOUBLE END CHUCKING MACHINE OPERATOR Unavailable Unavailable DARIN, GAYLA DOUBLE END CHUCKING MACHINE OPERATOR Unavailable Unavailable DARIN, GAYLA DOUBLE END CHUCKING MACHINE OPERATOR Unavailable Unavailable DARIN, GAYLA DOUBLE END CHUCKING MACHINE OPERATOR Unavailable Unavailable DARIN, GAYLA DOUBLE END CHUCKING MACHINE OPERATOR Unavailable Unavailable DARIN, GAYLA DOUBLE END CHUCKING MACHINE OPERATOR Unavailable Unavailable Violet Lu Unavailable LisaMeme watts [...] is protected by Article 27-F of the [place] State Public Health law. If you continue you may have access to information: Regarding HIV / AIDS; Provided by facilities licensed or operated by the [facility] of Mental Health; or Provided by the [facility] for People With Developmental Disabilities. If such information is present, then the following [facility] mandated warning applies: This information has been [...] law may result in a fine or long term sentence or both. A general authorization for the release of medical or other information is NOT sufficient authorization for further disc losure. Allergies and Adverse Reactions Type Description Substance Reaction Status Data Source(s ) Drug allergy Penicillins Penicillin hives and face swells [facility] Health Encounters Encounter Providers Location Date Indications Data Source(s ) Extended Individual Psychotherapy - 45 min Attender: Angeline Miguel Angel [facility] 08/14/2021 01:00:00 AM EDT - 08/14/2021 01:00:00 AM EDT [facility] ([facility]) Attender: Angeline Miguel Angel 08/14/2021 12:00:00 AM EDT [facility] ([facility]) Health Monitoring - 30 Min Attender: Meme Priest [facility] 06/25/2021 02:00:00 AM EDT - 06/25/2021 02:00:00 AM EDT [facility] ([facility]) Psychiatric Diagnostic Evaluation (Non-Medical) Attender: Shantel valencia [facility] 06/25/2021 01:00:00 AM EDT - 06/25/2021 01:00:00 AM EDT [facility] ([facility]) Attender: Meme Priest 06/25/2021 12:00:00 AM EDT [facility] ([facility]) Attender: Angeline Miguel Angel 06/25/2021 12:00:00 AM EDT [facility] ([facility]) Brief Individual Psychotherapy - 30 min Attender: Violet hernandez [facility] 06/08/2021 11:00:00 AM EDT - 06/08/2021 11:00:00 AM EDT [facility] ([facility]) Attender: Violet Lu 06/08/2021 12:00:00 AM EDT [facility] ([facility]) ([facility]) [facility] Nurse Visit [address] [place] [address] 04/16/2021 12:00:00 AM EDT eC1 (Critical access hospital) Extended Individual Psychotherapy - 45 min Attender: Angeline Michelle [facility] 04/02/2021 03:00:00 AM EDT - 04/02/2021 03:00:00 AM EDT [facility] ([facility]) Attender: Angeline Michelle 04/02/2021 12:00:00 AM EDT [facility] ([facility]) Attender: Angeline Michelle 03/12/2021 12:00:00 AM EDT [facility] ([facility]) Extended Individual Psychotherapy - 45 min Attender: Angeline Miguel Angel [facility] 03/11/2021 02:00:00 AM EDT - 03/11/2021 02:00:00 AM EDT [facility] ([facility]) Extended Individual Psychotherapy - 45 min Att[facility]: [facility] 02/24/2021 02:00:00 AM EDT - 02/24/2021 02:00:00 AM EDT [facility] ([facility]) Attender: Angeline Michelle 02/24/2021 12:00:00 AM EDT [facility] ([facility]) Telemed Diagnostic Eval Attender: Murphy Guerrero [facility] 02/10/2021 02:00:00 AM EDT - 02/10/2021 02:00:00 AM EDT [facility] ([facility]) Attender: Murphy Salinas NP 02/10/2021 12:00:00 AM EDT [facility] ([facility]) Outpatient [address] [facility] [address] 01/29/2021 12:00:00 AM EDT eCW1 ([facility]) Inpatient Attender: OSMANI TOUSSAINT MDAdmitter: OSMANI TOUSSAINT MD 01/09/2021 03:15:00 AM EST - 01/12/2021 06:07:00 PM EDT Suicidal Ideation w/plan to [place] [facility] Suicidal Ideation w/plan to jump in rive r Patient discharged. Outpatient Attender: GAYLA WEBSTER NPAdm itter: OSAMNI TOUSSAINT MDConsultant: OSMANI TOUSSAINT MD 01/09/2021 03:15:00 AM EST Suicidal Ideation w/p sadie to jump [place] river [facility] Suicidal Ideation w/plan to jump in rive r Outpatient Attender: James Sullivan NPAd mitter: OSMANI TOUSSAINT MDConsultant: OSMANI TOUSSAINT MD 01/09/2021 03:15:00 AM EST Suicidal Ideation w/p sadie to [place] [facility] Suicidal Ideation w/plan to jump in rive r Outpatient Attender: GAYLA WEBSTER NPAdm itter: OSMANI TOUSSAINT MDConsultant: OSMANI TOUSSAINT MD 01/09/2021 03:15:00 AM EST Suicidal Ideation w/p sadie to jump [place] [facility] Suicidal Ideation w/plan to jump in rive r Outpatient Attender: OSMANI TOUSSAINT MDAdmi tter: OSMANI TOUSSAINT MDConsultant: OSMANI TOUSSAINT MD 01/09/2021 03:15:00 AM EST Suicidal Ideation w/p sadie to [place] [facility] Suicidal Ideation w/plan to jump in rive r Outpatient Attender: OSMANI TOUSSAINT MDAdmi tter: OSMANI TOUSSAINT MDConsultant: OSMANI TOUSSAINT MD 01/09/2021 03:15:00 AM EST Suicidal Ideation w/p sadie to [place] [facility] Suicidal Ideation w/plan to jump in rive r Outpatient 01/09/2021 01:35:00 AM EST [facility] ( [facility]OB) [facility] [address] [place] [address] 12/26/2020 12:00:00 AM EST eCW1 ([facility]) (WC ESTOB) [facility] [address] [place] [address] 10/21/2020 12:00:00 AM EST eCW1 ([facility]) (WC [facility]) [facility] [address] [place] [address] 10/07/2020 12:00:00 AM EST eCW1 ([facility]) (WC [facility]) [facility] [address] [place] [address] 09/09/2020 12:00:00 AM EST eCW1 ([facility]) Unknown [address] [facility] [address] 09/09/2020 12:00:00 AM EST eCW1 ([facility]) Outpatient [address] [place] [address] 08/26/2020 12:00:00 AM EDT eCW1 ([facility]) ( ESTOB) [facility] [address] [place] [address] 08/19/2020 12:00:00 AM EDT eCW1 ([facility]) Functional Status Immunizations Vaccine Date Status Description Data Source(s) 04/16/2021 02:43:00 PM EDT completed e CW1 ([facility]) 01/29/2021 10:58:00 AM EDT completed e CW1 ([facility]) 01/29/2021 10:58:00 AM EDT completed e CW1 ([facility]) New in 2011. IIV4 08/19/2020 04:38:00 PM EDT completed eCW1 ([facility]) New in 2011. IIV4 08/19/2020 04:38:00 PM EDT completed eCW1 ([facility]) New in 2011. IIV4 08/19/2020 04:38:00 PM EDT completed eCW1 ([facility]) New in 2011. IIV4 08/19/2020 04:38:00 PM EDT completed eCW1 ([facility]) New in 2011. IIV4 08/19/2020 04:38:00 PM EDT completed eCW1 ([facility]) New in 2011. IIV4 08/19/2020 04:38:00 PM EDT completed eCW1 ([facility]) New in 2011. IIV4 08/19/2020 04:38:00 PM EDT completed eCW1 ([facility]) New in 2011. IIV4 08/19/2020 04:38:00 PM EDT completed eCW1 ([facility]) New in 2011. IIV4 08/19/2020 04:38:00 PM EDT completed eCW1 ([facility]) Medications Medication Brand Name Start Date Product [...] 100 mg by mouth completed <td ID="Medica tionRxNorm_1">[id number]</td><td ID="MedicationMedication_1">sertraline</td><td ID="MedicationRoute_1">by mouth</td><td ID="MedicationRouteConcept_1">S18637</td><td ID="MedicationStartDate_1">02/10/2021</td><td ID="MedicationStopDate_1">04/11/2021</td><td ID="MedicationDosageFrequency_1">once a day</td><td ID="MedicationDuration_1">30</td><td ID="MedicationFormulaStrength_1">100 mg</td><td ID="MedicationDosageForm_1">tablet</td><td ID="MedicationDosageFormCode_1"></td><td ID="MedicationDosageDescription_1"></td><td ID="MedicationMedicationId_1">[id number]</td><td ID="MedicationAccount_1">[id number]</td><td ID="MedicationNpid_1">[id number]</td><td ID="MedicationAuthorFirstName_1">Murphy</td><td ID="MedicationAuthorLastName_1">Salinas</td><td ID="MedicationTaxonomyCode_1">[id number]</td><td ID="MedicationTaxonomyDesc_1">Nurse Practitioner</td><td ID="MedicationPhoneNumber_1">[phone]</td> [facility] ([facility]) aripiprazole 2 MG Oral Tablet aripiprazole 02/10/2021 12:00:00 AM EDT 2 mg by mouth completed <td ID="Medica tionRxNorm_3">[id number]</td><td ID="MedicationMedication_3">aripiprazole</td><td ID="MedicationRoute_3">by mouth</td><td ID="MedicationRouteConcept_3">G15890</td><td ID="MedicationStartDate_3">02/10/2021</td><td ID="MedicationStopDate_3">04/11/2021</td><td ID="MedicationDosageFrequency_3">once a day</td><td ID="MedicationDuration_3">30</td><td ID="MedicationFormulaStrength_3">2 mg</td><td ID="MedicationDosageForm_3">tablet</td><td ID="MedicationDosageFormCode_3"></td><td ID="MedicationDosageDescription_3"></td><td ID="MedicationMedicationId_3">[id number]</td><td ID="MedicationAccount_3">[id number]</td><td ID="MedicationNpid_3">[id number]</td><td ID="MedicationAuthorFirstName_3">Murphy</td><td ID="MedicationAuthorLastName_3">Salinas</td><td ID="MedicationTaxonomyCode_3">[id number]</td><td ID="MedicationTaxonomyDesc_3">Nurse Practitioner</td><td ID="MedicationPhoneNumber_3">[phone]</td> [facility] ([facility]) gabapentin 100 MG Oral Capsule gabapentin 02/10/2021 12:00:00 AM EDT 100 mg by mouth completed <td ID="Medica tionRxNorm_2">069208</td><td ID="MedicationMedication_2">gabapentin</td><td ID="MedicationRoute_2">by mouth</td><td ID="MedicationRouteConcept_2">P19875</td><td ID="MedicationStartDate_2">02/10/2021</td><td ID="MedicationStopDate_2">04/11/2021</td><td ID="MedicationDosageFrequency_2">three times a day</td><td ID="MedicationDuration_2">30</td><td ID="MedicationFormulaStrength_2">100 mg</td><td ID="MedicationDosageForm_2">capsule</td><td ID="MedicationDosageFormCode_2"></td><td ID="MedicationDosageDescription_2"> </td><td ID="MedicationMedicationId_2">[id number]</td><td ID="MedicationAccount_2">[id number]</td><td ID="MedicationNpid_2">[id number]</td><td ID="MedicationAuthorFirstName_2">Murphy</td><td ID="MedicationAuthorLastName_2">Salinas</td><td ID="MedicationTaxonomyCode_2">[id number]</td><td ID="MedicationTaxonomyDesc_2">Nurse Practitioner</td><td ID="MedicationPhoneNumber_2">[phone]</td> [facility] ([facility]) 50 mg 01/12/2021 12:00:00 AM EDT tablet [...] {tablet} active Sprintec 28 0.25-35 MG-MCG eCW1 ([facility]) Sertraline 50 MG Oral Tablet [Zoloft] Zoloft 50 MG Zoloft 50 MG 12/26/2020 12:00:00 AM EST 1.0 {tablet} active Zo loft 50 MG eCW1 ([facility]) Sertraline 50 MG Oral Tablet [Zoloft] Zoloft 50 MG Zoloft 50 MG 12/26/2020 12:00:00 AM EST 1.0 {tablet} active Zo loft 50 MG eCW1 ([facility]) Sertraline 50 MG Oral Tablet [Zoloft] Zoloft 50 MG Zoloft 50 MG 12/26/2020 12:00:00 AM EST 1.0 {tablet} active Zo loft 50 MG eCW1 ([facility]) 0.25-35 mg-mcg 12/26/2020 12:00:00 AM EST tablet 84 TAKE ONE TABLET BY MOUTH EVERY DAY TAKE ONE TABLET BY MOUTH EVERY DAY SOLD: 12/26/2020 [facility] Sprintec 28 0.25-35 MG-MCG Sprintec 28 0.25-35 MG-MCG 2020 12:00:00 AM EST 1.0 {tablet} active Sprintec 28 0.25-35 MG-MCG eCW1 ([facility]) Sprintec 28 0.25-35 MG-MCG Sprintec 28 0.25-35 MG-MCG 2020 12:00:00 AM EST 1.0 {tablet} active Sprintec 28 0.25-35 MG-MCG eCW1 ([facility]) 50 mg 12/26/2020 12:00:00 AM EST tablet [...] EST suspended Omepr azole 20 MG eCW1 ([facility]) Omeprazole 20 MG Delayed Release Oral Capsule Omeprazole 20 MG 09/09/2020 12:00:00 AM EST active Omeprazo le 20 MG eCW1 ([facility]) 20 mg 09/09/2020 12:00:00 AM EST capsule,delayed release (DR/EC) 30 TAKE ONE CAPSULE BY MOUTH EVERY DAY - 30 MINUTES BEFORE MORNING MEAL TAKE ONE CAPSULE BY MOUTH EVERY DAY - 30 MINUTES BEFORE MORNING MEAL SOLD: 09/10/2020 [facility] Omeprazole 20 MG Delayed Release Oral Capsule Omeprazole 20 MG 09/09/2020 12:00:00 AM EST active Omeprazo le 20 MG eCW1 ([facility]) Omeprazole 20 MG Delayed Release Oral Capsule Omeprazole 20 MG 09/09/2020 12:00:00 AM EST active Omeprazo le 20 MG eCW1 ([facility]) Omeprazole 20 MG Delayed Release Oral Capsule Omeprazole 20 MG 09/09/2020 12:00:00 AM EST suspended Omepr azole 20 MG eCW1 ([facility]) Omeprazole 20 MG Delayed Release Oral Capsule Omeprazole 20 MG 09/09/2020 12:00:00 AM EST suspended Omepr azole 20 MG eCW1 ([facility]) Omeprazole 20 MG Delayed Release Oral Capsule Omeprazole 20 MG 09/09/2020 12:00:00 AM EST active Omeprazo le 20 MG eCW1 ([facility]) Omeprazole 20 MG Delayed Release Oral Capsule Omeprazole 20 MG 09/09/2020 12:00:00 AM EST active Omeprazo le 20 MG eCW1 ([facility]) NITROFURANTOIN, MACROCRYSTALS 25 MG / Ni trofurantoin, Monohydrate 75 MG Oral Capsule Nitrofurantoin Monohyd Macro 100 MG Nitrofurantoin Monohyd Macro 100 MG 08/26/2020 12:00:00 AM EDT suspended Nitrofurantoin Monohyd Macro 100 MG eCW1 ([facility]) 100 mg 08/26/2020 12:00:00 AM EDT capsule [...] suspended Nitrofurantoin Monohyd Macro 100 MG eCW1 ([facility]) NITROFURANTOIN, MACROCRYSTALS 25 MG / Ni trofurantoin, Monohydrate 75 MG Oral Capsule Nitrofurantoin Monohyd Macro 100 MG Nitrofurantoin Monohyd Macro 100 MG 08/26/2020 12:00:00 AM EDT active Nitrofurantoin Monohyd Macro 100 MG eCW1 ([facility]) NITROFURANTOIN, MACROCRYSTALS 25 MG / Ni trofurantoin, Monohydrate 75 MG Oral Capsule Nitrofurantoin Monohyd Macro 100 MG Nitrofurantoin Monohyd Macro 100 MG 08/26/2020 12:00:00 AM EDT suspended Nitrofurantoin Monohyd Macro 100 MG eCW1 ([facility]) Insurance Providers Payer name Policy type / Coverage type Policy ID Covered democrat ID Covered democrat's relationship to arora Policy Arora Plan Information [facility] P [id number] S [id number] Medicaid S [id number] S [id number] Medicaid Dental P [id number] S [id number] Managed Care - Community Plan [facility] P [id number] S [id number] Managed Care - Community Plan [facility] P [id number] S [id number] Medicaid O [id number] Managed Care - Community Plan [facility] P [id number] S [id number] Managed Care - Community Plan [facility] P [id number] S [id number] Medicaid Dental P [id number] S [id number] Medicaid S [id number] S [id number] Managed Care - Community Plan [facility] P [id number] S [id number] Managed Care - Community Plan [facility] P [id number] S [id number] Managed Care - [facility] Community Plan P [id number] S [id number] Medicaid S [id number] Managed Care - Community Plan [facility] P [id number] S [id number] MEDICAID M [id number] Self [id number] UN COMMUNITY PLAN MCDHMO [id number] SP [id number] UN COMMUNITY PLAN MCDHMO [id number] SP [id number] SELF PAY [facility] [id number] SP [id number] [place] [id number] SP [id number] Sliding Fee Scale O UNAVAILABLE O UNAVAILABLE EMEDNY [id number] SP [id number] UN COMMUNITY PLAN MCDHMO [id number] SP [id number] [facility] COMMUNITY PLAN MCDHMO [id number] SP [id number] [facility](MCA[facility]) O [id number] S [id number] SELF PAY ONLY SP MEDICAID [id number] SP [id number] Managed Care - Community Plan [facility] S [id number] S [id number] Self Pay P [id number] S [id number] D Managed Care [employer] S [id number] S [id number] zzMedicaid FFS O [id number] S [id number] Self Pay P UNAVAILABLE S UNAVAILA BLE Managed Care BCBS O [id number] S [id number] Sliding Fee Scale O [id number] S [id number] UN COMMUNITY PLAN MCDO [id number] SP [id number] Problems, Conditions, and Diagnoses Code Display Name Description Problem Type Effective Dates Data Source(s) Z13.9 Encounter for screening, unspecified Z13 .9 - Encounter for screening, unspecified Diagnosis 01/09/2021 03:15:[address] [facility] F32.2 Major depressive disorder, s rei episode, severe without psychotic features F32.2 - Major depressive disorder, singl e episode, severe without psychotic features Diagnosis 01/09/2021 03:15:[address] [facility] SI SI Diagnosis 01/09/2021 01:35:00 AM [facility] F12.10 Cannabis abuse, uncomplicated Cannabis Use Disorder, M ild Condition 08/14/2021 12:00:00 AM EDT [facility] ([facility]) F31.9 Bipolar disorder, unspecified Unspecified Bipola r and Related Disorder Condition 08/14/2021 12:00:00 AM EDT [facility] ([facility]) Z72.0 Tobacco use Tobacco Use Disorder, Mild Condition 0 04/02/2021 12:00:00 AM EDT [facility] ([facility]) F43.23 Adjustment disorder with mixed anxiety a nd depressed mood Adjustment Disorder, With mixed anxiety and depressed mood Condition 2020 12:00:00 AM EDT [facility] ([facility]) F43.9 Reaction to severe stress, unspecified U nspecified Trauma- and Stressor- Related Disorder Condition 04/02/2021 12:00:00 AM EDT [facility] ( [facility]) F33.2 Major depressive disorder, recurrent sev ere without psychotic features Major Depressive Disorder, Recurrent episode, Severe Condition 0 04/02/2021 12:00:00 AM EDT [facility] ([facility]) F31.9 [id number] Bipolar 1 disorder, depressed Problem 2020 12:00:00 AM EDT eCW1 ([facility]) Surgeries/Procedures Procedure Description Date Indications Data Source(s) Extended Individual Psychotherapy - 45 min 08/14/2021 12:00:00 AM EDT - 08/14/2021 12:00:00 AM EDT [facility] ([facility]) Extended Individual Psychotherapy - 45 min 12:00:00 AM EDT [facility] ([facility]) PREVENT MED LOOM INSPECTOR&/RISK FACTOR REDJ SPX 30 MIN 06/25/2021 12:00:00 AM EDT - 06/25/2021 12:00:00 AM EDT [facility] ([facility]) PREVENT MED LOOM INSPECTOR&/RISK FACTOR REDJ SPX 30 MIN 06/25 12:00:00 AM EDT [facility] ([facility]) Psychiatric Diagnostic Evaluation (Non-Medical) 06/25/2021 12:00:00 AM EDT - 06/25/2021 12:00:00 AM EDT [facility] ([facility]) Psychiatric Diagnostic Evaluation (Non-Medical) 2020 12:00:00 AM EDT [facility] ([facility]) Brief Individual Psychotherapy - 30 min 06/08/2021 12:00:00 AM EDT - 06/08/2021 12:00:00 AM EDT [facility] ([facility]) Brief Individual Psychotherapy - 30 min 06/08/2021 12: 00:00 AM EDT [facility] ([facility]) URINE TEST 04/16/2021 12:00:00 AM EDT eCW1 ([facility]) Injection, medroxyprogesterone acetate for contraceptive use , 150 mg 04/16/2021 12:00:00 AM EDT eCW1 ([facility] Extended Individual Psychotherapy - 45 min 04/02/2021 12:00:00 AM EDT - 04/02/2021 12:00:00 AM EDT [facility] ([facility]) Extended Individual Psychotherapy - 45 min 12:00:00 AM EDT [facility] ([facility]) Extended Individual Psychotherapy - 45 min 03/12/2021 12:00:00 AM EDT - 03/12/2021 12:00:00 AM EDT [facility] ([facility]) Extended Individual Psychotherapy - 45 min 12:00:00 AM EDT [facility] ([facility]) Extended Individual Psychotherapy - 45 min 02/24/2021 12:00:00 AM EDT - 02/24/2021 12:00:00 AM EDT [facility] ([facility]) Extended Individual Psychotherapy - 45 min 12:00:00 AM EDT [facility] ([facility]) Telemed Diagnostic Eval 02/10/2021 12:00 :00 AM EDT - 02/10/2021 12:00:00 AM EDT [facility] ([facility]) Telemed Diagnostic Eval 02/10/2021 12:00:00 AM EDT [facility] ([facility]) Injection, medroxyprogesterone acetate for contraceptive use , 150 mg 01/29/2021 12:00:00 AM EDT eCW1 ([facility]) URINE TEST 01/29/2021 12:00:00 AM EDT eCW1 ([facility]) INFLUENZA VIRUS VACC SPLIT PRSRV FREE 3 YRS/> IM 08/19 12:00:00 AM EDT eCW1 ([facility]) Results ID Date Data Source [id number] 01/11/2021 04:18:00 [place] [address] HEALTH INFORMATION MANAGEMENT Consultation : [id number] Signed Patient: Monica Koehler Acct:[id number] [facility] t: [id number] : 2000 Loc: [facility] Room/Bed: 819-A Age/Sex: 20 / F ADM Date: 01/09/21 cc: James Andres MD, Baljeet NP PCM Consult Date of Consult: 01/11/21 Reason for Consult: History and physical. Hospitalist attending in charge: Dr. Andres. History of Present Illness: Patient is a 20-year-old female with no significant past medical historywas been admitted to inpatient [facility] due to worsening depression. 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 Lives with: Reports Family PMH/PSH Medical [...] Tenderness Extremities: negative Edema and Tenderness Skin: print shop assistant reviewed and agreed with; negative Lesions and [...] 2 Mg Tablet) 2 mg PO DAILY [facility] Last Admin: 01/11/21 08:09 Dose: 2 mg Documented by: Gabapentin (Gabapentin 100 Mg Capsule) 100 mg PO TID [facility] Last Admin: 01/11/21 13:01 Dose: 100 mg Documented by: Sertraline HCl (Sertraline 50 Mg Tablet) 100 mg PO DAILY [facility] Last Admin: 01/11/21 08:09 Dose: 100 mg Documented by: Trazodone HCl (Trazodone 50 Mg Tablet) [address] [facility] Last Admin: 01/10/21 19:34 Dose: 50 mg [...] concerns that arise during her stay at [facility]. MIPS MIPS REVIEWED Did you review MIPS this visit?: Yes Tobacco Use:Preventative Care/Screening Performance Met:: 4004F: Pt screened for tobacco use, identified user, recieved info Hospitalist Charges Worksheet Subject to change for billing criteria Did you complete your Hospitalist charges for this visit?: Yes Inpt Consult [id number] Cons Level 2: Yes Signed By:James Sullivan <<Signature on File>> Signed Date/Time: 01/11/21 1621 Co-Signer: James Andres MD Co-Signed Date/Time: 01/11/21 1615 Initializing User: James Sullivan NP [id number] 161 Name Value Range Interpretation Code Description Data Alize rce(s) Supporting Document(s) ID Date Data Source [id number] 01/09/2021 12:37:00 PM [facility] [address] [place] [address] HEALTH INFORMATION MANAGEMENT [facility] Psychosocial Summary : [id number] Signed Patient: Monica Koehler Acct:[id number] [facility] t: [id number] : 2000 Loc: [facility] Room/Bed: 819-A Age/Sex: 20 / F ADM Date: 01/09/21 cc: General/History - Presenting Problem Presenting Problem: Presenting Problem: Monica is a 20-year-old female admitted to [facility] for suicidal ideation. Client reports getting into an argument with her significant other and threatening to jump into the [place]. Client denies suicidal ideation stating that she [...] What is You Current/Last Place of Employment?: [employer] What is Your Main Source of Income?: Un employment Do You Have Any Current Legal Issues?: No - Outside Activity Are You Involved in Any Community Service?: No Do You Consider Your self a Social Person?: Yes Any Interests or Hobbies you do for fun?: Video games, music, walks. Are you part of any hindu/spirtual community?: No - Current Living/Relationship History Current Living Arrangement: Apartment Who Do You Live With?: and 2 children OK to Return Home: Yes Weapons in household: No Currently in a Relationship?: Yes Ever Been ?: Yes Any Children?: 2 - Family History Where Were You Born/Raised?: [facility] Who Was in Home?: Mother How is [...] rce(s) Supporting Document(s) ID Date Data Source [id number] 01/09/2021 12:17:00 AM EST [facility] Name Value Range Interpretation Code Description Data Alize rce(s) Supporting Document(s) SARS coronavirus 2 RNA [Presence] in Res piratory specimen by [facility] with probe detection NEGATIVE [facility] This lab was ordered by [facility] a nd reported by [facility]. ID Date Data Source GROUP B STREP CULTURE 10/21/2020 12:00:00 AM EST eCW1 ([facility]) Name Value Range Interpretation Code Description Data Alize rce(s) Supporting Document(s) GROUP B STREP CULTURE eCW1 (Formerly [facility]) ID Date Data Source URINE CULTURE 08/28/2020 05:58:06 AM EDT eCW1 (Formerly [facility]) Name Value Range Interpretation Code Description Data Alize rce(s) Supporting Document(s) URINE CULTURE eCW1 ([facility]) Procedure Social History Code Duration Value Status Description Data Source(s ) Smoking 08/14/2021 12:00:00 AM EDT Unknown if ever smoked comp leted Unknown if ever smoked [facility] ([facility]) Smoking 06/25/2021 12:00:00 AM EDT Unknown if ever smoked comp leted Unknown if ever smoked [facility] ([facility]) Smoking 06/08/2021 12:00:00 AM EDT Unknown if ever smoked comp leted Unknown if ever smoked [facility] ([facility]) Smoking 04/02/2021 12:00:00 AM EDT Unknown if ever smoked comp leted Unknown if ever smoked [facility] ([facility]) Smoking 03/12/2021 12:00:00 AM EDT Unknown if ever smoked comp leted Unknown if ever smoked [facility] ([facility]) Smoking 02/24/2021 12:00:00 AM EDT Unknown if ever smoked comp leted Unknown if ever smoked [facility] ([facility]) Smoking 02/10/2021 12:00:00 AM EDT Unknown if ever smoked comp leted Unknown if ever smoked [facility] ([facility]) Smoking 01/28/2021 12:00:00 AM EDT Never Smoker completed Never S moker eCW1 ([facility]) Smoking 01/28/2021 12:00:00 AM EDT Never Smoker completed Never S moker eCW1 ([facility]) Smoking 12/23/2020 12:00:00 AM EST Never Smoker completed Never S moker eCW1 ([facility]) Smoking 10/27/2020 12:00:00 AM EST Never Smoker completed Never S moker eCW1 ([facility]) Smoking 10/07/2020 12:00:00 AM EST Never Smoker completed Never S moker eCW1 ([facility]) Smoking 09/19/2020 12:00:00 AM EST Never Smoker completed Never S moker eCW1 ([facility]) Smoking 09/03/2020 12:00:00 AM EST Never Smoker completed Never S moker eCW1 ([facility]) Smoking 09/03/2020 12:00:00 AM EST Never Smoker completed Never S moker eCW1 ([facility]) Smoking 08/26/2020 12:00:00 AM EDT Never Smoker completed Never S moker eCW1 ([facility]) Vital Signs ID Date Data Source UNK Name Value Range Interpretation Code Description Data Source(s) Body height 67.00 in Normal (applies to non-numeric resu lts) 67.00 in [facility] ([facility]) Body weight Measured 218.00 lbs Normal (applies to n on-numeric results) 218.00 lbs [facility] ([facility]) Body mass index (BMI) [Ratio] 34.14 kg/m2 No rmal (applies to non-numeric results) 34.14 kg/m2 [facility] ([facility]) Systolic blood pressure 111 mm[Hg] Normal (applies t o non-numeric results) 111 mm[Hg] [facility] ([facility]) Diastolic blood pressure 68 mm[Hg] Normal (applies to non-numeric results) 68 mm[Hg] [facility] ([facility]) Body temperature 98.30 degF Normal (applies to non-n umeric results) 98.30 degF [facility]) Body height --lying 84 min Normal (applies to non-nume trini results) 84 min [facility] ([facility]) Respiratory rate 18 min Normal (applies to non-numeric results) 18 min [facility] ([facility]) Body height 0.00 in Normal (applies to non-numeric resu lts) 0.00 in [facility] ([facility]) Body weight Measured 0.00 lbs Normal (applies to n on-numeric results) 0.00 lbs [facility] ([facility]) Body mass index (BMI) [Ratio] 0.00 kg/m2 No rmal (applies to non-numeric results) 0.00 kg/m2 [facility] ([facility]) Diastolic blood pressure 0 mm[Hg] Normal (applies to non-numeric results) 0 mm[Hg] [facility] ([facility]) Systolic blood pressure 0 mm[Hg] Normal (applies t o non-numeric results) 0 mm[Hg] [facility] ([facility]) Body weight 208.8 [lb_av] 208.8 [lb_av] eCW1 (Formerly [facility]) Body height 67 [in_i] 67 [in_i] eCW1 ([facility]) Body mass index (BMI) [Ratio] 32.7 kg/m2 32.7 k g/m2 W1 ([facility]) Systolic blood pressure 120 mm[Hg] 120 mm[Hg] e CW1 ([facility]) Diastolic blood pressure 78 mm[Hg] 78 mm[Hg] eCW1 ([facility]) Body weight 211 [lb_av] 211 [lb_av] eCW1 ([facility]) Body height 67 [in_i] 67 [in_i] eCW1 ([facility]) Body mass index (BMI) [Ratio] 33.04 kg/m2 33.04 kg/m2 eCW1 ([facility]) Systolic blood pressure 150 mm[Hg] 150 mm[Hg] e CW1 ([facility]) Diastolic blood pressure 80 mm[Hg] 80 mm[Hg] eCW1 ([facility]) Body weight 227 [lb_av] 227 [lb_av] eCW1 ([facility]) Body height 67 [in_i] 67 [in_i] eCW1 ([facility]) Body mass index (BMI) [Ratio] 35.553 kg/m2 35.5 53 kg/m2 eCW1 ([facility]) Systolic blood pressure 120 mm[Hg] 120 mm[Hg] e CW1 ([facility]) Diastolic blood pressure 70 mm[Hg] 70 mm[Hg] eCW1 ([facility]) Body weight 222 [lb_av] 222 [lb_av] eCW1 ([facility]) Body height 67 [in_i] 67 [in_i] eCW1 ([facility]) Body mass index (BMI) [Ratio] 34.77 kg/m2 34.77 kg/m2 eCW1 ([facility]) Systolic blood pressure 130 mm[Hg] 130 mm[Hg] e CW1 ([facility]) Diastolic blood pressure 72 mm[Hg] 72 mm[Hg] eCW1 ([facility]) Body weight 219 [lb_av] 219 [lb_av] eCW1 ([facility]) Body height 67 [in_i] 67 [in_i] eCW1 ([facility]) Body mass index (BMI) [Ratio] 34.3 kg/m2 34.3 k g/m2 W1 ([facility]) Systolic blood pressure 130 mm[Hg] 130 mm[Hg] e CW1 ([facility]) Diastolic blood pressure 66 mm[Hg] 66 mm[Hg] eCW1 ([facility]) Body weight 217 [lb_av] 217 [lb_av] eCW1 ([facility]) Body weight 98.43 kg 98.43 kg eCW1 ([facility]) Body height 67 [in_i] 67 [in_i] eCW1 ([facility]) Body mass index (BMI) [Ratio] 33.98 kg/m2 33.98 kg/m2 eCW1 ([facility]) Systolic blood pressure 124 mm[Hg] 124 mm[Hg] e CW1 ([facility]) Diastolic blood pressure 78 mm[Hg] 78 mm[Hg] eCW1 ([facility]) Body weight 214 [lb_av] 214 [lb_av] eCW1 ([facility]) Body height 67 [in_i] 67 [in_i] eCW1 ([facility]) Body mass index (BMI) [Ratio] 33.517 kg/m2 33.5 17 kg/m2 eCW1 ([facility]) Systolic blood pressure 122 mm[Hg] 122 mm[Hg] e CW1 ([facility]) Diastolic blood pressure 68 mm[Hg] 68 mm[Hg] eCW1 ([facility]) ID Date Data Source [id number] 01/09/2021 01:35:53 AM EST [facility] Name Value Range Interpretation Code Description Data Source(s) TRANSFER FROM [facility] Patient Treatment Plan of Care Planned Activity Planned Date Details Description Data Source (s) Sertraline 50 MG Oral Tablet [Zoloft] 12/26/2020 12:00:00 AM EST eCW1 ([facility]) Sprintec 28 0.25-35 MG-MCG 12/26/2020 12:00:00 AM EST eCW1 ([facility]) Omeprazole 20 MG Delayed Release Oral Capsule 09/09/2020 12:00:00 A M EST eCW1 ([facility]) Omeprazole 20 MG Delayed Release Oral Capsule 09/09/2020 12:00:00 A M EST eCW1 ([facility]) Omeprazole 20 MG Delayed Release Oral Capsule 09/09/2020 12:00:00 A M EST eCW1 ([facility]) NITROFURANTOIN, MACROCRYSTALS 25 MG / Ni trofurantoin, Monohydrate 75 MG Oral Capsule 08/26/2020 12:00:00 AM EDT eCW1 ([facility])
== END 2021-10-07 15:43 | disposition left against medical advice (07) ==
LOC: M ED 12:07
DX: Z53.21 Procedure and treatment not carried out due to patient leaving prior to being seen by health care provider (principal)

== ENCOUNTER → 2022-03-08 | Outpatient (CLI) | payer MEDICAID, OTHER | LOC: M WHC 12:32 | PROVIDERS: ATTEND Obstetrics & Gynecology | DX: N60.19 Diffuse cystic mastopathy of unspecified breast (principal) ==

== ENCOUNTER 2022-08-04 12:42 | Emergency (ER) | payer MEDICAID, OTHER ==
[~2022-08-04] VITALS: Ht 170.2 cm; Wt 87.0 kg
[2022-08-04] MEDS ORDERED: ACET-683 PO (12:47)
[2022-08-04] MEDS ORDERED: ESTA0.25 (12:48)
[2022-08-04] MEDS ORDERED: LIDOCAINE 5% (LIDODERM) PATCH TD ONE (14:20)
[2022-08-04] MEDS ORDERED: ACETAMINOPHEN 500 MG TAB PO ONE (14:20)
[2022-08-04 14:48] LABS: BASO % 0.4 % (0.0-1.0); EOS % 0.3 % (0.0-3.0); HEMATOCRIT 40.2 % (36.0-47.0); HEMOGLOBIN 13.3 g/dl (12.0-15.5); LYMPH % 31.7 % (24.0-44.0); MEAN CORPUSCULAR HEMOGLOBIN 29.6 pg (27.0-33.0); MEAN CORPUSCULAR HGB CONC 33.1 g/dl (32.0-36.5); MEAN CORPUSCULAR VOLUME 89.3 fl (80.0-96.0); MONO # 0.4 10^3/uL (0.0-0.8); MONO % 3.7 % (2.0-8.0); NEUTROPHILS # 6.1 10^3/uL (1.5-8.5); NEUTROPHILS % 63.7 % (36.0-66.0); PLATELET COUNT, AUTOMATED 336 10^3/uL (150-450); WHITE BLOOD COUNT 9.6 10^3/uL (4.0-10.0)
[2022-08-04 16:04] LABS: ALBUMIN 3.5 GM/DL (3.2-5.2); BILIRUBIN,DIRECT 0.2 MG/DL (0.0-0.2); BILIRUBIN,TOTAL 0.4 MG/DL (0.2-1.0); TOTAL PROTEIN 7.9 GM/DL (6.4-8.2)
[2022-08-04] MEDS ORDERED: ISOVUE-370 76% 100ML VIAL As Ordered ONE (16:41)
[2022-08-04] MEDS ORDERED: KETOROLAC 30 MG/ML 1ML VIAL IV ONE (17:00)
[2022-08-04 17:31] VITALS: BP 111/71
[2022-08-04] MEDS ORDERED: NAPR-837 PO (18:11)
[2022-08-04] MEDS ORDERED: ASPE4PAD TOP (18:11)
[2022-08-04] MEDS ORDERED: **NOTE PATIENT COMMENT** MISC XX SCH (21:00)
== END 2022-08-04 18:25 | disposition home or self-care (01) ==
LOC: M ED 12:42
DX: R07.9 Chest pain, unspecified (principal); K80.20 Calculus of gallbladder without cholecystitis without obstruction; Z88.0 Allergy status to penicillin; Z88.1 Allergy status to other antibiotic agents; Z79.899 Other long term (current) drug therapy
CPT/HCPCS: 71046; 71275; 76705; 80047; 80076; 83690; 84702; 85025; 85379; 96374; 99284; J1885; Q9967

== ENCOUNTER → 2023-04-19 | Outpatient (CLI) | payer MEDICAID, OTHER ==
[~2023-04-19] MED LIST changes: +ASPE4PAD TOP; +ESTA0.25; +NAPR-837 PO
[2023-04-19 10:37] LABS: HEMATOCRIT 38.3 % (36.0-47.0); HEMOGLOBIN 12.8 g/dl (12.0-15.5); MEAN CORPUSCULAR HEMOGLOBIN 30.7 pg (27.0-33.0); MEAN CORPUSCULAR HGB CONC 33.4 g/dl (32.0-36.5); MEAN CORPUSCULAR VOLUME 91.8 fl (80.0-96.0); PLATELET COUNT, AUTOMATED 251 10^3/uL (150-450); RED BLOOD COUNT 4.17 10^6/uL (4.00-5.40); WHITE BLOOD COUNT 8.9 10^3/uL (4.0-10.0)
[2023-04-19 12:26] LABS: GC DNA AMPLIFICATION NEGATIVE (NEGATIVE)
[2023-04-19 21:03] LABS: HIV 1&2 SCREEN NEGATIVE (NEGATIVE)
[2023-04-19 21:11] LABS: HEPATITIS C VIRUS ABY INDEX 0.08 INDEX (<0.8)
== END ==
LOC: M PLALAB 08:40
PROVIDERS: ATTEND Specialist
DX: Z34.83 Encounter for supervision of other normal pregnancy, third trimester (principal); Z3A.00 Weeks of gestation of pregnancy not specified

== ENCOUNTER → 2023-05-25 | Outpatient (CLI) | payer OTHER | LOC: M WHC 14:34 | PROVIDERS: ATTEND Advanced Practice Midwife | DX: Z34.92 Encounter for supervision of normal pregnancy, unspecified, second trimester (principal); Z3A.20 20 weeks gestation of pregnancy ==

== ENCOUNTER → 2023-07-18 | Outpatient (CLI) | payer MEDICAID, OTHER ==
[2023-07-18 20:35] LABS: HEMATOCRIT 36.7 % (36.0-47.0); MEAN CORPUSCULAR HEMOGLOBIN 30.8 pg (27.0-33.0); MEAN CORPUSCULAR HGB CONC 32.7 g/dl (32.0-36.5); MEAN CORPUSCULAR VOLUME 94.3 fl (80.0-96.0); PLATELET COUNT, AUTOMATED 260 10^3/uL (150-450); RED BLOOD COUNT 3.89 10^6/uL (4.00-5.40); WHITE BLOOD COUNT 11.6 10^3/uL (4.0-10.0)
[2023-07-18 23:07] LABS: GC DNA AMPLIFICATION NEGATIVE (NEGATIVE)
== END ==
LOC: M PLALAB 16:02
PROVIDERS: ATTEND Obstetrics & Gynecology
DX: Z34.92 Encounter for supervision of normal pregnancy, unspecified, second trimester (principal); Z3A.00 Weeks of gestation of pregnancy not specified

== ENCOUNTER → 2023-09-19 | Outpatient (REF) | payer MEDICAID ==
[~2023-09-19] MED LIST changes: +DIPH50CA PO; +PRENTAB9 PO
== END ==
LOC: M PLALAB 10:39
PROVIDERS: ATTEND Advanced Practice Midwife
DX: Z34.93 Encounter for supervision of normal pregnancy, unspecified, third trimester (principal)

== ENCOUNTER 2023-09-25 18:17 | Outpatient (CLI) | payer OTHER, MEDICAID ==
[~2023-09-25] VITALS: Ht 170.2 cm; Wt 101.7 kg
[2023-09-25 18:40] VITALS: BP 138/72
[2023-09-25] MEDS ORDERED: HOME MED LIST COMPLETE! XX SCH (18:55)
[2023-09-25 19:29] VITALS: BP 132/80
== END 2023-09-25 19:43 | disposition home or self-care (01) ==
LOC: M LDO 18:17
PROVIDERS: ATTEND Obstetrics & Gynecology
DX: O23.593 Infection of other part of genital tract in pregnancy, third trimester (principal); B37.9 Candidiasis, unspecified; Z3A.37 37 weeks gestation of pregnancy; Z88.0 Allergy status to penicillin; Z88.1 Allergy status to other antibiotic agents
CPT/HCPCS: 59025; 76815; G0463

== ENCOUNTER 2023-10-09 19:09 | Outpatient (CLI) | payer MEDICAID, OTHER ==
[~2023-10-09] VITALS: Ht 170.2 cm; Wt 107.5 kg
[2023-10-09 19:31] VITALS: BP 139/78
== END 2023-10-09 20:45 | disposition home or self-care (01) ==
LOC: M LDO 19:09
PROVIDERS: ATTEND Obstetrics & Gynecology
DX: O47.1 False labor at or after 37 completed weeks of gestation (principal); Z3A.40 40 weeks gestation of pregnancy
CPT/HCPCS: 59025; G0463

== ENCOUNTER 2023-10-10 20:57 | Inpatient (IN) | payer OTHER, MEDICAID ==
[~2023-10-10] VITALS: Ht 170.2 cm; Wt 106.0 kg
[2023-10-10 21:15] VITALS: BP 134/69; O2SAT 98
[2023-10-10] MEDS ORDERED: LIDOCAINE 1% MDV 20ML VIAL INFIL PRN (21:45)
[2023-10-10] MEDS ORDERED: OXYTOCIN DRIP 30 UNITS in IV 1 EA IV SCH (21:45)
[2023-10-10] MEDS ORDERED: METHYLERGONOVINE MALEATE 0.2MG/ML 1ML VIAL IM PRN (21:45)
[2023-10-10] MEDS ORDERED: CARBOPROST TROMETHAMINE 250 MCG/ML AMP IM PRN (21:45)
[2023-10-10] MEDS ORDERED: TRANEXAMIC ACID INJection 1,000 MG in NS 100 ML IV PRN (21:45)
[2023-10-10] MEDS ORDERED: OXYTOCIN INJ 10UNITS/ML 1ML VIAL IM PRN (21:45)
[2023-10-10] MEDS ORDERED: OXYTOCIN DRIP 30 UNITS in IV 1 EA IV PRN (21:45)
[2023-10-10] MEDS ORDERED: HOME MED LIST COMPLETE! XX SCH (22:10)
[2023-10-10 22:30] VITALS: BP 103/55
[2023-10-10] MEDS: LR 1,000 ML IV SCH (22:30)
[2023-10-10 22:35] LABS: HEMATOCRIT 37.1 % (36.0-47.0); HEMOGLOBIN 12.5 g/dl (12.0-15.5); MEAN CORPUSCULAR HEMOGLOBIN 30.3 pg (27.0-33.0); MEAN CORPUSCULAR HGB CONC 33.7 g/dl (32.0-36.5); MEAN CORPUSCULAR VOLUME 89.8 fl (80.0-96.0); PLATELET COUNT, AUTOMATED 266 10^3/uL (150-450); RED BLOOD COUNT 4.13 10^6/uL (4.00-5.40); WHITE BLOOD COUNT 13.4 10^3/uL (4.0-10.0)
[2023-10-10 23:02] VITALS: BP 99/58
[2023-10-10 23:32] VITALS: BP 107/55
[2023-10-11] VITALS (37 sets, daily range): BP systolic 100–157; BP diastolic 52–88; O2SAT 97
[2023-10-11] MEDS: LR 1,000 ML IV SCH ×2 (05:41→10:15)
[2023-10-11] MEDS ORDERED: MORPHINE 10 MG/ML 1ML VIAL SC ONE (06:00)
[2023-10-11] MEDS ORDERED: MORPHINE 4 MG/ML 1ML VIAL IV ONE (06:00)
[2023-10-11] MEDS ORDERED: PROMETHAZINE 25MG/ML 1ML VIAL IV ONE (06:00)
[2023-10-11] MEDS ORDERED: DIBUCAINE 1% OINTMENT 30GM TOP PRN (12:25)
[2023-10-11] MEDS ORDERED: ACETAMINOPHEN TAB 650MG DOSE (2X325MG) PO PRN (12:25)
[2023-10-11] MEDS ORDERED: MOM 30ML SUSPENSION UDC PO PRN (12:25)
[2023-10-11] MEDS ORDERED: RHOGAM 300MCG (1500IU) INJ IM SCH (12:25)
[2023-10-11] MEDS ORDERED: IBUPROFEN 600MG TAB PO PRN (12:25)
[2023-10-11] MEDS ORDERED: ANUSOL HC CREAM 30GM TOP PRN (12:25)
[2023-10-11] MEDS ORDERED: DOCUSATE SODIUM 100MG CAPSULE PO PRN (12:25)
[2023-10-11] MEDS: IBUPROFEN 800 MG TAB PO PRN (13:03)
[2023-10-11] MEDS: ACETAMINOPHEN 500 MG TAB PO PRN ×2 (13:04→20:45)
[2023-10-12 06:00] VITALS: BP 127/66; O2SAT 98
[2023-10-12] MEDS: IBUPROFEN 800 MG TAB PO PRN (06:20)
[2023-10-12] MEDS ORDERED: PRENATAL VITAMINS CHEWABLE TABLET PO SCH (09:00)
[2023-10-12] MEDS ORDERED: MEASLES,MUMPS,RUBELLA VACCINE INJ (MMR-II) SC.IMMUN ONE (09:00)
[2023-10-12] MEDS: ACETAMINOPHEN 500 MG TAB PO PRN (11:36)
[2023-10-12] MEDS ORDERED: INFLUENZA QUADRIVALENT PF VACCINE 0.5ML SYRINGE IM.IMMUN ONE (11:40)
== END 2023-10-12 18:20 | disposition home or self-care (01) | DRG 560 ==
LOC: M LDO 20:57 → M LDI 21:44 → M OBS 10-11 14:30
PROVIDERS: ADMIT Advanced Practice Midwife; ATTEND Advanced Practice Midwife
PROC: 10E0XZZ Delivery of Products of Conception, External Approach (ICD-10-PCS; principal; 2023-10-11)
DX: O70.0 First degree perineal laceration during delivery (principal); Z37.0 Single live birth; Z3A.40 40 weeks gestation of pregnancy

== ENCOUNTER 2023-12-02 07:15 | Observation (INO) | payer OTHER ==
[~2023-12-02] VITALS: Ht 170.2 cm; Wt 94.8 kg
[2023-12-02] VITALS (8 sets, daily range): BP systolic 120–138; BP diastolic 68–78; TEMP 97.2–98.7; O2SAT 97–99
[2023-12-02 07:52] LABS: HEMATOCRIT 37.7 % (36.0-47.0); HEMOGLOBIN 12.6 g/dl (12.0-15.5); MEAN CORPUSCULAR HEMOGLOBIN 29.6 pg (27.0-33.0); MEAN CORPUSCULAR HGB CONC 33.4 g/dl (32.0-36.5); MEAN CORPUSCULAR VOLUME 88.5 fl (80.0-96.0); PLATELET COUNT, AUTOMATED 295 10^3/uL (150-450); RED BLOOD COUNT 4.26 10^6/uL (4.00-5.40)
[2023-12-02] MEDS ORDERED: fentaNYL 100 MCG/2 ML INJECTION As Ordered ONE (08:04)
[2023-12-02] MEDS ORDERED: LIDOCAINE 2% 100MG/5ML SDV (FOR ANES.) As Ordered ONE (08:04)
[2023-12-02] MEDS ORDERED: ONDANSETRON 4MG 2ML VIAL As Ordered ONE (08:04)
[2023-12-02] MEDS ORDERED: MIDAZOLAM INJ 2MG/2ML VIAL As Ordered ONE (08:04)
[2023-12-02] MEDS ORDERED: propofoL 200 MG/20 ML VIAL As Ordered ONE (08:05)
[2023-12-02] MEDS ORDERED: LR 1,000 ML IV SCH ×2 (08:10→10:05)
[2023-12-02] MEDS ORDERED: KETOROLAC 60MG 2ML VIAL As Ordered ONE (08:11)
[2023-12-02] MEDS: LR 1,000 ML IV SCH (08:15)
[2023-12-02] MEDS ORDERED: ROCURONIUM BROMIDE 50MG/5ML VIAL As Ordered ONE (08:39)
[2023-12-02] MEDS ORDERED: ACETAMINOPHEN 1000MG 100ML IV BAG As Ordered ONE (09:22)
[2023-12-02] MEDS ORDERED: SUGAMMADEX SODIUM 500 MG/5 ML VIAL (BRIDION) As Ordered ONE (09:28)
[2023-12-02] MEDS ORDERED: fentaNYL 100 MCG/2 ML INJECTION IV PRN (10:05)
[2023-12-02] MEDS ORDERED: SIMETHICONE 80MG CHEW TAB PO PRN (10:15)
[2023-12-02] MEDS ORDERED: ONDANSETRON 4MG 2ML VIAL IV PRN (10:15)
[2023-12-02] MEDS: ONDANSETRON 4MG 2ML VIAL IV PRN (10:34)
[2023-12-02] MEDS: HYDROMORPHONE HCL 0.5 MG/ 0.5 ML SYRINGE IV PRN (10:35)
[2023-12-02] MEDS: oxyCODONE 5MG TAB PO PRN (10:35)
[2023-12-02] MEDS: ACETAMINOPHEN 500 MG TAB PO SCH (16:41)
[2023-12-02] MEDS: IBUPROFEN 600MG TAB PO SCH (18:20)
== END 2023-12-02 21:35 | disposition home or self-care (01) ==
LOC: M SDC 07:15 → M PED 07:16 → M SDC 07:16 → M PED 11:13
PROVIDERS: ADMIT Obstetrics & Gynecology; ATTEND Obstetrics & Gynecology
DX: Z30.2 Encounter for sterilization (principal); N99.71 Accidental puncture and laceration of a genitourinary system organ or structure during a genitourinary system procedure; Z88.0 Allergy status to penicillin; F12.10 Cannabis abuse, uncomplicated; F31.9 Bipolar disorder, unspecified; Z79.899 Other long term (current) drug therapy; F41.9 Anxiety disorder, unspecified
CPT/HCPCS: 36415; 58661; 81025; 85027; 86850; 86900; 86901; 88302; J0131; J0665; J1100; J1170; J1885; J2250; J2405; J3010

== ENCOUNTER → 2023-12-20 | Outpatient (REF) | payer OTHER, MEDICAID ==
[2023-12-20 18:09] LABS: AMORPHOUS SEDIMENT LARGE (NEGATIVE); APPEARANCE, URINE TURBID (CLEAR); BACTERIA, URINE AUTO 1+ (NEGATIVE); BILIRUBIN, URINE AUTO NEGATIVE (NEGATIVE); BLOOD, URINE BLOOD 3+ (NEGATIVE); COLOR, URINE AMBER (YELLOW); GLUCOSE, URINE (UA) AUTO NEGATIVE (NEGATIVE); KETONE, URINE AUTO NEGATIVE (NEGATIVE); LEUKOCYTE ESTERASE, URINE AUTO TRACE (NEGATIVE); MUCUS, URINE MODERATE (NEGATIVE); NITRITE, URINE AUTO NEGATIVE (NEGATIVE); PROTEIN, URINE AUTO 1+ mg/dL (NEGATIVE); RBC, URINE AUTO TNTC /HPF (0-3); SQUAMOUS EPITHELIAL CELL UR AU 2 /HPF (0-6); UROBILINOGEN, URINE AUTO 0.2 mg/dL (0.0-2.0); WBC, URINE AUTO 10 /HPF (0-3)
== END ==
LOC: M SFHCWAGY 16:46
PROVIDERS: ATTEND Obstetrics & Gynecology
DX: R30.0 Dysuria (principal)

== ENCOUNTER → 2024-03-01 | Outpatient (REF) | payer MEDICAID, OTHER | LOC: M PLALAB 09:58 | PROVIDERS: ATTEND Advanced Practice Midwife | DX: Z01.419 Encounter for gynecological examination (general) (routine) without abnormal findings (principal); Z12.4 Encounter for screening for malignant neoplasm of cervix ==